=== PATIENT | male | born 1970 | race Caucasian/White ===

== ENCOUNTER 2025-08-15 19:18 | Inpatient (IN) ==
--- NOTE | 2025-08-15 19:45 | Emergency Department Note ---
Impression & Plan Pulmonary edema, Anemia, Hypomagnesemia, Hypokalemia, Compression fx, thoracic spine ED Provider Note NAME: NABIL MACEDO AGE: 55 SEX: M : 1970 ARRIVES VIA: Walk-In INFORMANT: Patient, ED PROVIDER(S): Mark Gore DO CHIEF COMPLAINT: Edema HPI: The patient is a 55-year-old male who presented to the emergency department for an evaluation of lower extremity edema. The patient's had problems with breathing. He is been short of breath as well as experiencing orthopnea. The patient states he was sent for laboratory studies by his primary care physician today. He was sent to the emergency department for an evaluation as he was found to have an elevated creatinine as well as other laboratory abnormalities. The patient was found to have anemia as well as an elevated BNP. The patient was told to come the emergency department for admission. ROS: See above HPI for pertinent positives & negatives. A total of 10 systems reviewed and were otherwise negative. PAST MEDICAL HISTORY: See Below PAST SURGICAL HISTORY: See Below FAMILY HISTORY: See Below SOCIAL HISTORY: See Below HOME MEDICATIONS: See Below ALLERGIES: See Below VITALS: See Below PHYSICAL EXAMINATION: GENERAL: Patient is awake alert in no acute distress patient is resting comfortably and showing no signs of anxiety EYES: The conjunctivae are clear. The pupils are round and reactive. EARS, NOSE, MOUTH AND THROAT: The nose is without any evidence of any deformity. NECK: The neck is nontender and supple. RESPIRATORY: Diminished breath sounds are noted both bases. There was mild tachypnea and conversational dyspnea noted. CARDIOVASCULAR: Regular rhythm was noted to auscultation. There was a gallop noted to auscultation. Tachycardia was noted. GASTROINTESTINAL: The abdomen is soft. Abdomen is nontender. MUSCULOSKELETAL/EXTREMITIES: There is no evidence of gross deformity full range of motion is noted in the hips and shoulders. SKIN: Pedal edema was noted bilaterally. Skin was warm and dry. NEUROLOGIC: Patient is awake alert and oriented x3 MEDICAL DECISION MAKING: The patient is a 55-year-old male who presented to the emergency department for an evaluation of difficulty breathing. The patient's had difficulty breathing and lower extremity swelling over the last several days. He does not normally go to see his family doctor but he did go to see his family doctor recently. The patient was sent to the emergency department for further evaluation. The patient was found to have signs of pulmonary edema with anemia. The patient was also found to have elevated protein. The patient has a constellation of symptoms that could be related to a cardiac cause but also given his other laboratory findings a serum protein electrophoresis was added to his workup in the emergency department. I discussed patient's condition with the on-call [facility] hospitalist. They have agreed to evaluate the patient in the emergency department for further management and disposition. I did review the patient's laboratory and radiographic studies that were done through the [facility] system. He was found to have signs of a severe T5 compression fracture. Triage Nursing notes reviewed. Prior medical records reviewed Vital Signs: reviewed and remarkable for elevated blood pressure. Differential diagnosis: Reactive airway disease, pneumonia, pneumothorax, COPD, CHF, infections, cardiac ischemia, pulmonary embolism, musculoskeletal, gastrointestinal, as well as other pathologies. ER treatment provided: See below Diagnostics interpreted by me: ECG: EKG was obtained in the emergency department. My interpretation is sinus tachycardia at 108 bpm. There was no PVCs noted. Right bundle wrench block pattern was noted. QTc was 538 ms. Cardiac Monitoring: An order was placed for continuous cardiac monitoring. The monitor shows a rate of 104 bpm with sinus tachycardia. Laboratory studies: As stated above and show below. Imaging studies: See below. Radiographic imaging was reviewed by myself Consultation(s): I discussed this case with Dr. Ocho[facility]. Past Med/Surg History Problem List (Updated 08/15/25 @ 21:24 by Mark Gore DO) Compression fx, thoracic spine (Acute) Hypokalemia (Acute) Hypomagnesemia (Acute) Anemia (Acute) Pulmonary edema (Acute) Surgical History History of cholecystectomy Social History Smoking Status: Never smoker Preferred Language: Spanish Feels Safe at Home: Yes Allergies Allergies Allergy/AdvReac Type Severity Reaction Status Date / Time No Known Allergies Allergy Unverified 05/17/10 18:38 Home Meds Home Medications Medication Instructions Recorded Confirmed amoxicillin 875 mg tablet 875 mg PO BID 08/15/25 08/15/25 Results & Data (ED) Vital Signs Vital Signs - 24 hr 08/15/25 19:22 08/15/25 19:55 08/15/25 19:59 Temperature 36.4 C L Temperature Source Oral Pulse Rate 113 H 106 H 104 H Respiratory Rate 18 20 Respiratory Effort / Characteristics Non-Labored Spontaneous Respiratory Depth Normal Respiratory Pattern Regular Blood Pressure 180/91 H Blood Pressure Mean 120 Blood Pressure Position Sitting Pulse Oximetry 94 97 Oxygen Delivery Method Room Air Room Air Sepsis Recent Fever Within 48 Hours No Sepsis New/Unexplained Change in Mental Status N/A Sepsis Action Taken by Nursing No Action Required Home Medications Current Medication List: was personally reviewed by me Laboratory Data Attestation: I reviewed the patient's lab results. 08/15/25 19:50 08/15/25 19:50 Lab Results 08/15/25 Range/Units 19:50 WBC 5.97 (4.8-10.8) K/ul RBC 2.37 L (4.70-6.10) M/uL Hgb 7.4 L (14.0-18.0) g/dL Hct 23.2 L (42.0-52.0) % MCV 97.9 (80.0-100.0) fL MCH 31.2 (25.0-34.0) pg MCHC 31.9 L (32.0-36.0) g/dL RDW Std Deviation 65.8 H (36.4-46.3) fL RDW Coeff of Matthew 18.6 H (11.5-14.5) % Plt Count 181 (130-400) K/uL MPV 9.5 (9.4-12.4) fL Immature Gran % (Auto) 0.3 % Neut % (Auto) 67.5 % Lymph % (Auto) 15.6 % [place] % (Auto) 10.9 % Eos % (Auto) 5.2 % Baso % (Auto) 0.5 % Neut # (Auto) 4.03 (1.40-6.50) K/uL Lymph # (Auto) 0.93 L (1.20-3.40) K/uL [place] # (Auto) 0.65 H (0.11-0.59) K/uL Eos # (Auto) 0.31 (0.00-0.50) K/uL Baso # (Auto) 0.03 (0.00-0.20) K/uL Immature Gran # (Auto) 0.02 (0.01-0.20) K/uL Toxic Vacuolation 1+ Polychromasia 1+ Rouleaux 1+ PT 16.5 H (9.0-12.0) Seconds INR 1.6 H (0.9-1.1) APTT 35 H (21-31) Seconds PTT Ratio 1.3 VBG pH 7.51 H (7.36-7.41) VBG pCO2 32 L (38-50) mmHg VBG pO2 52 mmHg VBG HCO3 26 mmol/L VBG O2 Saturation 81.5 % VBG Base Excess 3.0 mEq/L Sodium 136 (136-145) mmol/L Potassium 3.0 L (3.5-5.1) mmol/L Chloride 99 (98-107) mmol/L Carbon Dioxide 23 (21-32) mmol/L Anion Gap 14 H (3-11) BUN 17 (6-23) mg/dl Creatinine 1.89 H (0.6-1.4) mg/dl Est Cr Clr Drug Dosing 40.3 ml/min eGFR 40.89 BUN/Creatinine Ratio 9.0 L (10-20) Glucose 104 H (70-99(Fasting)) mg/dl Calcium 8.8 (8.6-10.3) mg/dl Magnesium 1.5 L (1.7-2.4) mg/dl Total Bilirubin 1.4 H (0.2-1.0) mg/dl AST 31 (13-39) U/L ALT 26 (7-52) U/L Alkaline Phosphatase 101 (34-104) U/L Troponin I High Sens 37.6 H (0-20) pg/ml B-Natriuretic Peptide 1461 H (0-100) pg/ml Total Protein 10.7 H (6.0-8.3) gm/dl Albumin 2.4 L (3.4-5.0) gm/dl Globulin 8.3 H (2.5-4.0) gm/dl Albumin/Globulin Ratio 0.3 L (0.9-2) Administered Medications Magnesium Sulfate/Dextrose (Magnesium Sulfate / D5w) 1 gm in 100 mls @ 100 mls/hr IV NOW STA Stop: 08/15/25 21:43 Last Admin: 08/15/25 21:04 Dose: 100 mls/hr Documented By: MAGALYS Potassium Chloride (K Dick / Wtr) 10 meq in 100 mls @ 100 mls/hr IV ONE ONE Stop: 08/15/25 21:43 Last Admin: 08/15/25 21:05 Dose: 100 mls/hr Documented By: MAGALYS Discontinued Medications Furosemide (Furosemide 40 Mg Tab) 40 mg PO NOW ONE Stop: 08/15/25 20:45 Last Admin: 08/15/25 21:04 Dose: 40 mg Documented By: MAGALYS Potassium Chloride (Potassium Chloride 10 Meq Tabcr) 10 meq PO NOW STA Stop: 08/15/25 20:45 Last Admin: 08/15/25 20:54 Dose: Not Given Documented By: MAGALYS Imaging Data Attestation: I personally reviewed and interpreted this imaging study as follows: My Impression: 1 view chest x-ray was obtained in the emergency department. My interpretation is cardiomegaly with volume overload, final report below. Radiologist's Impression: Chest X-Ray 08/15/25 19:33 Exam: Chest one view portable. Reason for exam: Shortness of breath. Previous studies: None FINDINGS: Heart is moderately enlarged with central pulmonary vascular congestion and a mild interstitial prominence suggesting mild CHF. Additionally small right pleural effusion is present. IMPRESSION: CHF with cardiomegaly, pulmonary venous hypertension and right pleural effusion. Radiographic follow-up recommended. Electronically signed by Zack Hayes 08-15-2025 8:52 PM Discharge Plan Visit Data Chief Complaint: Referred by Doctor Stated Complaint: REF BY DR ED Provider: Mark Gore Discharge Problem: Pulmonary edema, Anemia, Hypomagnesemia, Hypokalemia, Compression fx, thoracic spine Patient Disposition: Being Evaluated by Hospitalist Condition: Fair Forms Stand Alone Forms: My [facility] Prescriptions Prescriptions: No Action amoxicillin 875 mg tablet 875 mg PO BID Rx Instructions: to start today and take for 10 days Referrals Referrals: PCP,NO [Physician] -
[2025-08-15 20:07] LABS: Base Excess VBG 3.0 mEq/L; HCO3 VBG 26 mmol/L; Oxygen Saturation VBG 81.5 %; PCO2 VBG 32 mmHg (38-50); PO2 VBG 52 mmHg; pH VBG 7.51 (7.36-7.41)
[2025-08-15 20:17] LABS: Hematocrit (blood only) 23.2 % (42.0-52.0); Hemoglobin 7.4 g/dL (14.0-18.0); Immature Granulocytes # (auto) 0.02 K/uL (0.01-0.20); Immature Granulocytes % (auto) 0.3 %; Mean Corpuscular Hemoglobin 31.2 pg (25.0-34.0); Mean Corpuscular Volume 97.9 fL (80.0-100.0); Platelet Count 181 K/uL (130-400); RDW Standard Deviation 65.8 fL (36.4-46.3); Red Blood Count 2.37 M/uL (4.70-6.10); White Blood Count 5.97 K/ul (4.8-10.8)
[2025-08-15 20:31] LABS: Alanine Aminotransferase 26.0 U/L (7-52); Albumin Globulin Ratio 0.3 (0.9-2); Albumin Level 2.4 gm/dl (3.4-5.0); Alkaline Phosphatase 101.0 U/L (34-104); Anion Gap 14.0 (3-11); Bilirubin,Total 1.4 mg/dl (0.2-1.0); Blood Urea Nitrogen 17.0 mg/dl (6-23); Calcium 8.8 mg/dl (8.6-10.3); Carbon Dioxide 23.0 mmol/L (21-32); Chloride 99.0 mmol/L (98-107); Creatinine Clr Calc Pharmacy 40.3 ml/min; Globulin 8.3 gm/dl (2.5-4.0); Glucose 104.0 mg/dl (70-99(Fasting)); Magnesium 1.5 mg/dl (1.7-2.4); Potassium 3.0 mmol/L (3.5-5.1); Sodium 136.0 mmol/L (136-145); Total Protein 10.7 gm/dl (6.0-8.3)
[2025-08-15 20:41] LABS: INR 1.6 (0.9-1.1); Partial Thromboplastin Time 35 Seconds (21-31); Prothrombin Time 16.5 Seconds (9.0-12.0)
[2025-08-15 20:45] LABS: Polychromasia 1+; Rouleaux 1+; Toxic Vacuolation 1+
--- NOTE | 2025-08-15 20:52 | XRay Report ---
Exam: Chest one view portable. Reason for exam: Shortness of breath. Previous studies: None FINDINGS: Heart is moderately enlarged with central pulmonary vascular congestion and a mild interstitial prominence suggesting mild CHF. Additionally small right pleural effusion is present. IMPRESSION: CHF with cardiomegaly, pulmonary venous hypertension and right pleural effusion. Radiographic follow-up recommended. Electronically signed by Zack Hayes 08-15-2025 8:52 PM
[2025-08-15] MEDS: POTASSIUM CHLORIDE 10 MEQ TABCR PO STA (20:54)
[2025-08-15] MEDS: MAGNESIUM SULFATE / D5W 1 GM/100 ML BAG IV STA (21:04)
[2025-08-15] MEDS: FUROSEMIDE 40 MG TAB PO ONE (21:04)
[2025-08-15] MEDS: POTASSIUM CHLORIDE / WTR 10 MEQ/100 ML PLCT IV ONE (21:05)
[2025-08-15] MEDS: POTASSIUM CHLORIDE CRTAB 20 MEQ TABCR PO STA (21:30)
[2025-08-15] MEDS: METOPROLOL TARTRATE 25 MG TAB PO STA (21:31)
--- NOTE | 2025-08-15 21:39 | History & Physical Report ---
Date of Service August 15, 2025 Assessment & Plan (1) Anemia: (2) Pulmonary edema: (3) Pleural effusion, right: (4) Hypomagnesemia: (5) Hypokalemia: (6) Elevated blood pressure reading: (7) Compression fx, thoracic spine: (8) Abnormal kidney function: Plan: HPI, ROS, PE, PMH, SH, FH completed by Maria E Olivares PA-C Blood consent was obtained from the patient as delegated by Dr. Hubbard. Risks and benefits were explained. All questions were answered, and the patient was offered the opportunity to discuss with attending physician and declined. Assessment and plan per Dr Hubbard. See addendum. History of Present Illness Chief Complaint: abnormal labs Primary Care Provider: Spring Soco Patient is 55-year-old male with PMH chewing tobacco use presented to ER for abnormal labs. Patient reports he has not seen a provider for over 20 years. Reports thoracic back pain that started after he was lifting heavy tote in May. Patient reports went to a chiropractor and had adjustments without relief. States saw another chiropractor which helped decrease pain. Reports approximately 1 week ago started with productive cough. Denies rhinorrhea, sore throat. Denies fever or chills. Reports thoracic back pain worse since cough. He has been taking ibuprofen intermittently over past couple of months for back pain. 6 days ago noticed bilateral lower leg edema. He reports noticing SOB with exertion for past 1-2 months. noticed seems winded with conversation at times. Sleeps in recliner for past several months secondary to back discomfort. Denies noted orthopnea. Reports 20 pound weight loss over the past 3 months with poor appetite and decreased oral intake. Fatigue over the past month. Family has stated his color seems off. Denies diaphoresis, N/V/D/C, VELA, dizziness, syncope, vision changes, neck pain, CP, palpitations, hemoptysis, sore throat, choking, abdominal pain, paresthesias, extremity weakness, extremity erythema, rashes, urinary symptoms, night sweats, melena, hematochezia. Denies falls or other trauma. Patient presented to PCP today as new patient and labs were ordered. He was found to have anemia and abnormal renal functions and referred to ER for further evaluation. Reports father was smoker and "smoking and pneumonia". Per outpatient chart review 08/15/25: Cr: 2.1, H/H: 7.3/24.5, PSA:3.3 (range <3.1), A1c: 6.0, TSH: 1.7, proBNP: 11,595 (range <300), Lipid panel: Total cholesterol: 61, LDL: 30, HDL: 21, triglycerides: 49 08/15/25 CXR: Impression: Small right pleural effusion. 08/15/25 Thoracic spine x-ray: Impression: Moderate to severe T5 compression fracture, age indeterminate. Mild multilevel thoracic degenerative change. Allergies Allergy/AdvReac Type Severity Reaction Status Date / Time No Known Allergies Allergy Unverified 05/17/10 18:38 Home Medications Medication Instructions Recorded Confirmed Type amoxicillin 875 mg tablet 875 mg PO BID 08/15/25 08/15/25 History Past Med/Surg History Problem List (Updated 08/15/25 @ 22:47 by Maria E Olivares PA-C) Elevated blood pressure reading Abnormal kidney function Pleural effusion, right Compression fx, thoracic spine (Acute) Hypokalemia (Acute) Hypomagnesemia (Acute) Anemia (Acute) Pulmonary edema (Acute) Surgical History History of cholecystectomy Family History Father No problems noted. Social History (Updated 08/15/25 @ 22:38 by Maria E Olivares PA-C) Smoking Status: Never smoker Tobacco Type: Smokeless Tobacco (Dip or Chew) Do You Dip or Chew Tobacco: Yes; Hx Alcohol Use: No Hx Substance Use: No Preferred Language: Citizen Of [place] Tobacco Educator Required: No Beliefs That Will Affect Care: None Current Living Situation: Spouse and Family Feels Safe at Home: Yes Review of Systems Review of Systems: All systems reviewed & are unremarkable except as noted in HPI & below Physical Exam Physical Exam: General: no distress, overweight male Head: normocephalic, atraumatic Eyes: conjunctiva non-injected, anicteric ENT: normal inspection external ears, nose, mucous membranes moist Neck: supple, trachea midline Lungs: +dyspneic with conversation, R: 24, +diminished breath sounds RLL ; +cough with visibly productive yellow sputum CV: regular rhythm, tachycardia, rate 104, possible S3, + pretibial edema Abd: protuberant, normal BS, soft, non-tender Ext: no cyanosis, no calf tenderness Neuro: A&O x 3, no focal deficits noted, normal affect Skin: warm, dry, left lower leg with scattered excoriations and scabs Results & Data Results & Data Vital Signs (Past 12 Hours) Vital Signs Temp Pulse Resp BP Pulse Ox O2 Del Method 08/15/25 19:59 104 H 20 97 Room Air 08/15/25 19:55 106 H 08/15/25 19:22 36.4 C L 113 H 18 180/91 H 94 Room Air Laboratory Results Short CBC 08/15/25 Range/Units 19:50 WBC 5.97 (4.8-10.8) K/ul Hgb 7.4 L (14.0-18.0) g/dL Hct 23.2 L (42.0-52.0) % Plt Count 181 (130-400) K/uL BMP 08/15/25 19:50 Sodium 136 Potassium 3.0 L Chloride 99 Carbon Dioxide 23 BUN 17 Creatinine 1.89 H Glucose 104 H Calcium 8.8 Liver Function 08/15/25 Range/Units 19:50 Total Bilirubin 1.4 H (0.2-1.0) mg/dl AST 31 (13-39) U/L ALT 26 (7-52) U/L Alkaline Phosphatase 101 (34-104) U/L Albumin 2.4 L (3.4-5.0) gm/dl Diagnostic Findings Chest X-Ray 08/15/25 19:33 Exam: Chest one view portable. Reason for exam: Shortness of breath. Previous studies: None FINDINGS: Heart is moderately enlarged with central pulmonary vascular congestion and a mild interstitial prominence suggesting mild CHF. Additionally small right pleural effusion is present. IMPRESSION: CHF with cardiomegaly, pulmonary venous hypertension and right pleural effusion. Radiographic follow-up recommended. Electronically signed by Zack Hayes 08-15-2025 8:52 PM Supervising Physician Co-Signing Physician Notes IM ATTENDING : Patient seen and examined. History obtained from patient and records. Concur with salient points upon review of preceding documentation by Ms. Maria E Olivares PA-C. In addition, SBP 170s at the clinic and 180s upon arrival at the ER. I take responsibility for plan of care below. FINAL ASSESSMENT AND PLAN as follows : Shortness of breath Multifactorial: Acute CHF possibly from uncontrolled blood pressure Complicated bronchitis, no sepsis for now LE swelling secondary to CHF rule out DVT Worsening back pain, age-indeterminate T5 compression fracture on outpatient imaging ARF, unknown duration, NSAID use for back pain contributory New onset anemia, outpatient iron and folic acid levels noted to be low, FOBT done at bedside negative. Hypokalemia, hypomagnesemia Prediabetes, outpatient hemoglobin A1c of 6 ongoing tobacco abuse Admit to PCU Diuretic Rx Initiate beta-bernice for BP control Strict I/Os, daily weights, CHF education Patient counseled regarding adverse effects of NSAIDs on blood pressure and kidney function. TTE, Cardiology consult re: CHF Doxycycline for complicated bronchitis LE venous Dopplers rule out DVT CT thoracic and lumbar spine for back pain in the setting of anemia and kidney dysfunction Iron and folic acid replacement Transfuse PRBC to maintain hemoglobin of at least 7 Replace electrolytes DVT prophylaxis. Heparin subcu if no bleeding concerns on CT imaging Full code I spent a total of 30 minutes coordinating, documenting, and providing care for this patientexcludingtime spent by another provider/QHP. Text document was generated using [employer] voice recognition software. It may contain grammatical or spelling errors. Kindly contact undersigned for clarification of any documentation item in question.
[2025-08-15] MEDS: MAGNESIUM SULFATE / D5W 1 GM/100 ML BAG IV ONE (22:03)
[2025-08-15 22:23] LABS: Chlamydia pneumoniae PCR Not Detected (NotDetected); Coronavirus 229E PCR Not Detected (NotDetected); Coronavirus CoV-2 (COVID19)PCR Not Detected (NotDetected); Coronavirus HKU1 PCR Not Detected (NotDetected); Coronavirus NL63 PCR Not Detected (NotDetected); Coronavirus OC43PCR Not Detected (NotDetected); Human Metapneumovirus PCR Not Detected (NotDetected); Parainfluenza Virus 1 PCR Not Detected (NotDetected); Parainfluenza Virus 2 PCR Not Detected (NotDetected); Parainfluenza Virus 3 PCR Not Detected (NotDetected); Parainfluenza Virus 4 PCR Not Detected (NotDetected); Respiratory Syncytial VirusPCR Not Detected (NotDetected); Rhinovirus/Enterovirus PCR Not Detected (NotDetected)
[2025-08-15 22:56] LABS: Appearance Urine Clear (Clear); Bacteria Urine Automated None Seen (None Seen); Epithelial Cell Urine Auto 0-2 /hpf (0-2); Glucose Urine UA Negative (Negative); RBC Urine Automated 0-2 /hpf (0-2)
[2025-08-15 23:21] LABS: Hematocrit (blood only) 21.4 % (42.0-52.0); Hemoglobin 6.9 g/dL (14.0-18.0)
[2025-08-15] MEDS ORDERED: SODIUM CHLORIDE 0.9% 100 ML IV PRN (23:25)
[2025-08-15] MEDS ORDERED: PROMETHAZINE 6.25 MG/50.25 ML BAG IV PRN (23:26)
[2025-08-15] MEDS ORDERED: HYDROmorphone INJ 0.5 MG/0.5 ML SYR IV PRN (23:26)
[2025-08-15] MEDS ORDERED: ACETAMINOPHEN 325 MG TAB PO PRN (23:26)
[2025-08-16] MEDS: POTASSIUM CHLORIDE CRTAB 20 MEQ TABCR PO ONE (00:15)
[2025-08-16] MEDS: NICOTINE 14 MG/24 HR PATCH TD STA (00:17)
[2025-08-16] MEDS: FUROSEMIDE INJ 20 MG/2 ML VIAL IV ONE (03:27)
[2025-08-16] MEDS: DOXYCYCLINE HYCLATE 100 MG in DEXTROSE 5% MINI-B 100 ML IV STA (03:30)
--- NOTE | 2025-08-16 04:02 | Ultrasound Report ---
EXAM: US venous doppler LE BI CLINICAL HISTORY: swelling TECHNIQUE: Bilateral lower extremity venous Doppler was performed. One or more of the following were performed- spectral analysis, resistive index, waveform analysis, and pulsed Doppler. COMPARISON: None. FINDINGS: Bilateral lower limb venous system was examined. The veins scanned included the following: Common femoral, superficial femoral, popliteal and posterior tibial veins. On the B mode examination, the veins are compressible. No evidence of an intraluminal thrombus. On the color and spectral Doppler mode, there is phasic and spontaneous flow in the vessels. Additional Findings: No evidence of superficial vein thrombosis at the visualized veins. Bilateral groin lymph nodes with preserved fatty hilum, likely reactive. Mild bilateral calf subcutaneous edema. IMPRESSION: 1. No evidence of deep vein thrombosis at the visualized bilateral lower extremity veins at this time of exam. 2. Bilateral groin lymph nodes with preserved fatty hilum, likely reactive. 3. Mild bilateral calf subcutaneous edema. RECOMMENDATIONS: Clinical correlation with symptoms and further evaluation as indicated. DISCLAIMER:DVT could be missed early in the disease when clot burden is minimal. For patients with moderate and high pretest probability of DVT and negative ultrasound, the [place] [employer] clinical guidelines recommend testing with a d-dimer assay or repeat ultrasound in 5-7 days. If symptoms worsen, the Society of radiologists in ultrasound recommends repeating ultrasound even earlier. Electronically signed by Trae Martinez 08-16-2025 04:02 AM
--- NOTE | 2025-08-16 06:17 | CT Scan Report ---
EXAM: CT abd pelvis wo con CLINICAL HISTORY: back pain TECHNIQUE: Contiguous axial images were obtained from the level of the diaphragm to the pubic symphysis without intravenous or oral contrast. Coronal and sagittal reconstructions were likewise performed and indicated to increase the sensitivity for detecting clinically relevant pathology. CT scan was performed according to ALARA (as low as reasonably achievable). COMPARISON: None. FINDINGS: Mild right pleural effusion with basal subsegmental collapse of right lower lobes are seen. Mild ascitic fluid is noted involving perihepatic space, right paracolic gutter and lower abdomen and pelvis region. Evaluation of the abdominal and pelvic visceral organs is limited without intravenous contrast. The unenhanced liver, spleen, pancreas, and adrenal glands are grossly unremarkable. Status post-cholecystectomy. The kidneys are normal in size and attenuation without obvious calcification. There is no hydronephrosis Mild bilateral perinephric fat stranding. The ureters are normal in caliber. No evidence of focal or diffuse bowel wall thickening or evidence of bowel obstruction is seen. The aorta is normal in caliber. The urinary bladder is normal in contour. Enlarged prostate. Pelvic viscera are grossly unremarkable. Fat containing bilateral inguinal hernia.-more on right side. Mild focal mesenteric haziness is noted involving supra and periumbilical region (at the mesenteric root) superimposed subcentimeter size lymph nodes-suggestive of mesenteric panniculitis. Multiple variable sized osteolytic lesions are noted involving axial and appendicular skeleton- possibility of neoplastic etiology. Diffuse subcutaneous edema/anasarca noted. Multiple subcentimeter sized to mildly prominent aortocaval, para-aortic and paracaval lymph nodes are seen. IMPRESSION: 1. Mild right pleural effusion with basal subsegmental collapse of right lower lobes are seen. 2. Mild ascitic fluid is noted involving perihepatic space, right paracolic gutter and lower abdomen and pelvis region. 3. Mild bilateral perinephric fat stranding 4. Enlarged prostate. 5. Fat containing bilateral inguinal hernia.-more on right side. 6. Mesenteric panniculitis. 7. Multiple subcentimeter sized to mildly prominent aortocaval, para-aortic and paracaval lymph nodes are seen. 8. Multiple variable sized osteolytic lesions are noted involving axial and appendicular skeleton - possibility of neoplastic etiology. 9. Diffuse subcutaneous edema/anasarca noted. Electronically signed by Cricket Brooke 08-16-2025 06:17 AM
--- NOTE | 2025-08-16 06:21 | CT Scan Report ---
EXAM: CT thoracic spine wo con CLINICAL HISTORY: back pain TECHNIQUE: Multiple contiguous axial images were obtained through the thoracic spine without IV contrast. Sagittal and coronal reformatted images were obtained from the axial data. CT scan was performed according to ALARA (as low as reasonably achievable). COMPARISON: None. FINDINGS: The alignment of the thoracic spine is maintained. Degenerative changes involving thoracic spine in the form of multilevel marginal osteophytes, disc space reduction and facetal arthrosis. Evidence of variable sized osteolytic lesions are noted involving visualized thoracic vertebrae including its posterior elements and multiple ribs.- largest involving T7 and T9 vertebra. Compression collapse of T5 vertebra with about 80%-90% reduction of vertebral body height with retropulsion of posterior cortex causing mild spinal canal narrowing (Anteroposterior dimension measuring 11mm). - pathological compression likely. Compression collapse of T7 vertebra with about 15%-20% reduction of vertebral body height. Thoracic vertebral bodies are maintained in height and alignment. No vertebral destructive changes are seen. C7-T1: No disc bulge. No canal stenosis. No neuroforaminal narrowing. T1-T2: No disc bulge. No canal stenosis. No neuroforaminal narrowing. T2-T3: No disc bulge. No canal stenosis. No neuroforaminal narrowing. T3-T4: No disc bulge. No canal stenosis. No neuroforaminal narrowing. T4-T5: No disc bulge. No canal stenosis. No neuroforaminal narrowing. T5-T6: No disc bulge. No canal stenosis. No neuroforaminal narrowing. T6-T7: No disc bulge. No canal stenosis. No neuroforaminal narrowing. T7-T8: No disc bulge. No canal stenosis. No neuroforaminal narrowing. T8-T9: No disc bulge. No canal stenosis. No neuroforaminal narrowing. T9-T10: No disc bulge. No canal stenosis. No neuroforaminal narrowing. T10-T11: No disc bulge. No canal stenosis. No neuroforaminal narrowing. T11-T12: No disc bulge. No canal stenosis. No neuroforaminal narrowing. Paravertebral soft tissues are unremarkable. Visualized lung parenchyma appears unremarkable. Mild right pleural effusion with basal subsegmental collapse of right lower lobes are seen. IMPRESSION: Evidence of variable sized osteolytic lesions are noted involving visualized thoracic vertebrae including its posterior elements and multiple ribs.- largest involving T7 and T9 vertebra.- possibility of neoplastic etiology likely. Compression collapse of T5 vertebra with about 80%-90% reduction of vertebral body height with retropulsion of posterior cortex causing mild spinal canal narrowing - pathological compression likely. Compression collapse of T7 vertebra with about 15%-20% reduction of vertebral body height. Mild right pleural effusion with basal subsegmental collapse of right lower lobes are seen. Electronically signed by Cricket Brooke 08-16-2025 06:20 AM
[2025-08-16 06:42] LABS: Hematocrit (blood only) 22.6 % (42.0-52.0); Hemoglobin 7.5 g/dL (14.0-18.0); Immature Granulocytes # (auto) 0.03 K/uL (0.01-0.20); Immature Granulocytes % (auto) 0.4 %; Mean Corpuscular Hemoglobin 31.8 pg (25.0-34.0); Mean Corpuscular Volume 95.8 fL (80.0-100.0); Platelet Count 199 K/uL (130-400); RDW Standard Deviation 64.0 fL (36.4-46.3); Red Blood Count 2.36 M/uL (4.70-6.10); White Blood Count 6.84 K/ul (4.8-10.8)
[2025-08-16 07:14] LABS: Polychromasia 1+; Rouleaux 2+
[2025-08-16 07:24] LABS: Anion Gap 15.0 (3-11); Blood Urea Nitrogen 18.0 mg/dl (6-23); Calcium 9.0 mg/dl (8.6-10.3); Carbon Dioxide 23.0 mmol/L (21-32); Chloride 99.0 mmol/L (98-107); Creatine Kinase 41.0 U/L (30-223); Creatinine Clr Calc Pharmacy 50.4 ml/min; Glucose 103.0 mg/dl (70-99(Fasting)); Magnesium 2.0 mg/dl (1.7-2.4); Potassium 3.4 mmol/L (3.5-5.1); Sodium 137.0 mmol/L (136-145)
[2025-08-16] MEDS: METOPROLOL TARTRATE 25 MG TAB PO SCH ×2 (07:30→08:16)
[2025-08-16] MEDS: FUROSEMIDE 40 MG/4 ML VIAL IV SCH (08:17)
[2025-08-16] MEDS: POTASSIUM CHLORIDE CRTAB 20 MEQ TABCR PO SCH (08:19)
[2025-08-16] MEDS: FOLIC ACID 1 MG TAB PO SCH (08:20)
[2025-08-16] MEDS: FERROUS SULFATE 325 MG TAB PO SCH (08:20)
[2025-08-16] MEDS: NICOTINE 14 MG/24 HR PATCH TD SCH (08:21)
[2025-08-16] MEDS: REMOVE NICODERM PATCH SCH (08:56)
[2025-08-16 09:54] LABS: Immunoglobulin G 472.8 mg/dl (635-1741); Immunoglobulin M < 20.0 mg/dl (45-281)
[2025-08-16 09:55] LABS: Immunoglobulin A 6649.2 mg/dl (70-400)
--- NOTE | 2025-08-16 11:13 | XCELERA ---
[id number]
--- NOTE | 2025-08-16 11:13 | Cardiology Consultation ---
<Statement entered by Lyn Riggs, - 08/16/25 14:58> I have reviewed the advanced practitioner's documentation and agree with the plan of care. I accept the responsibility for the associated risk. pt seen in cardiology consultation due to volume overload (acute newly found uncertain chronicity heart failure with preserved EF-NYHA CLass II-III probably due to high out put cardiac in setting of anemia) in the setting of newly found anemia and ST and hypertension pt has not seen a physician in sometime but then finally did and due to out pt lab work was referred to hospital. He reports a few months ago hurting his back after lifting something and has been taking 3-4 ibuprofen daily since then he was found to have fracture lumbar spine on admission work up in addition to anemia bp is still elevated recommend coreg will accept some of the ST for now echo today reveals mildly reduced EF at about 50% with biatrial enlargement agree with work up for potential MM as this is a concerning diagnosis would continue IV lasix for today and i suspect by tomorrow we can transition to torsemide 40mg daily I discussed the case and my recommendations with the hospitalist over the phone and he agreed with my plan I spent a total of 45 minutes coordinating, documenting, and providing care for this patient excluding time spent in the performance of separately billed services or time spent by another provider/QHP. Date of Consultation August 16, 2025 Assessment & Plan (1) Elevated blood pressure reading: (2) Abnormal kidney function: (3) Anemia: (4) Volume overload: (5) Sinus tachycardia: Plan - ECG reviewed indicates sinus tachycardia with right bundle branch block - Does have a dilated IVC on echocardiogram with an EF of 45-50% - Continue IV diuresis for today, can likely stop tommorow - Monitor and replace electrolytes as necessary - He is anemic could have a semblance of high or output volume overload from the tachycardia? - Nephrology consult pending for abnormal renal function - Heart rate has improved - Blood pressure remains significantly elevated. Will transition from metoprolol to Coreg - He was taking ibuprofen for the last 2 months for his back pain which may be contributing factor - Radiology imaging on concerning for possible transfer status tomorrow SPEP and UPEP workup has been initiated for neoplastic workup Case discussed with Dr. Riggs. Please see attestation for additional recommen dations. PASCALE Abrams Department of Cardiology, [facility] This chart was completed in part utilizing Speech Voice Recognition Software. Grammatical errors, random word insertions, pronoun errors, and incomplete sentences are an occasional consequence of this system due to software limitations, ambient noise, and hardware issues. Any formal questions or concerns about the content, text, or information contained within the body of this dictation should be directly addressed to the provider for clarification. History of Present Illness Reason for Consultation: CHF Requesting Physician: Hospitalist Attending Physician: Lexx Isidro DO History of Present Illness 55-year-old male seen in consultation today in regard to concern of CHF. Presented to the hospital after establishing care with a primary care provider yesterday and being found to have had multiple abnormalities on lab work. He does have an ongoing issue with lower extremity edema and shortness of breath with orthopnea which have been ongoing for a while prior to presentation. Also noted that he had been having back pain which he had been seeing a chiropractor but has not had relief from this. Approximately 1 week prior to presentation he did develop a productive cough with postnasal drip. Denies chest pain. Did note that his upper back pain significantly worsened when he had developed the coughing about 1 week ago. Believes that he has had about 20 pound weight loss over the last 3 months with poor appetite and feeling more fatigued. Allergies Allergy/AdvReac Type Severity Reaction Status Date / Time No Known Allergies Allergy Unverified 05/17/10 18:38 Home Medications Medication Instructions Recorded Confirmed Type amoxicillin 875 mg tablet 875 mg PO BID 08/15/25 08/15/25 History Patient History Surgical History History of cholecystectomy Family History Father No problems noted. Social History (Updated 08/15/25 @ 22:38 by Maria E Olivares PA-C) Smoking Status: Never smoker Tobacco Type: Smokeless Tobacco (Dip or Chew) Do You Dip or Chew Tobacco: Yes; Hx Alcohol Use: No Hx Substance Use: No Preferred Language: Com[place]an Scaler Packer Required: No Beliefs That Will Affect Care: None Current Living Situation: Spouse and Family Feels Safe at Home: Yes Review of Systems Constitutional: + fatigue and + weight loss; no fever an d no chills Respiratory: + cough and + dyspnea on exertion Cardiovascular: + edema; no chest pain, no palpitations and no syncope Gastrointestinal: no abdominal pain Musculoskeletal: + back pain Physical Exam Constitutional: WD/WN, vitals as above + ill appearing and + overweight; no acute distress Neck: trachea midline, no thyromegaly Respiratory: normal respiratory effort, lungs clear to auscultation Cardiovascular: Rate/Rhythm: regular rhythm and + tachycardic Heart Sounds: no murmur Vessels: no JVD Extremities: + edema Gastrointestinal (Abdomen): normal bowel sounds, soft, nontender, no hepatosplenomegaly Psychiatric: A+Ox3, euthymic affect Results & Data Vital Signs (Past 12 Hours) Vital Signs Temp Pulse Pulse Resp BP BP BP 08/16/25 09:19 94 H 165/113 H 151/103 H 08/16/25 08:00 08/16/25 07:27 167/119 H 08/16/25 07:14 36.8 C 108 H 14 180/119 H 08/16/25 03:26 36.8 C 94 H 24 156/100 H 08/16/25 02:35 94 H 20 148/106 H 08/16/25 01:35 93 H 16 156/104 H 08/16/25 01:05 36.8 C 93 H 18 142/97 H 08/16/25 00:50 36.9 C 91 H 22 152/104 H 08/16/25 00:30 36.4 C L 93 H 16 149/102 H 08/15/25 23:50 36.4 C L 103 H 18 150/104 H 08/15/25 23:00 97 H 20 152/99 H Pulse Ox O2 Del Method 08/16/25 09:19 08/16/25 08:00 Room Air 08/16/25 07:27 08/16/25 07:14 95 Room Air 08/16/25 03:26 95 08/16/25 02:35 94 08/16/25 01:35 96 08/16/25 01:05 95 08/16/25 00:50 94 08/16/25 00:30 94 08/15/25 23:50 94 Room Air 08/15/25 23:00 94 Room Air PG Care Time/CCT Total # of Minutes Spent Total Time Spent with Patient: Total time spent is greater than 50% in coordination of care (as documented) at patient's floor/unit and/or counseling patient: Coding Level of Care Code 95458 IN/OBS CONSULT LVL 5,80M Diagnoses Elevated blood pressure reading R03.0 Abnormal kidney function N28.9 Anemia D64.9 Volume overload E87.70 Sinus tachycardia R00.0
[2025-08-16] MEDS: IPRATROPIUM BROMIDE NEB SOLN 0.02% 0.5MG/2.5ML VIAL INH STA (11:40)
[2025-08-16] MEDS: LEVALBUTEROL 1.25 MG/3 ML NEB NEB STA (11:40)
--- NOTE | 2025-08-16 12:28 | Electrocardiogram Report ---
Test Reason : Blood Pressure : */* mmHG Vent. Rate : 108 BPM Atrial Rate : 108 BPM P-R Int : 130 ms QRS Dur : 152 ms QT Int : 402 ms P-R-T Axes : 41 -19 1 degrees QTcB Int : 538 ms Sinus tachycardia Possible Left atrial enlargement Right bundle branch block Abnormal ECG No previous ECGs available Confirmed by Mark Woo ([id number]) on 08/16/2025 12:28:07 PM Referred By: REFERRED SELF Confirmed By: Mark Woo
--- NOTE | 2025-08-16 13:46 | Hospitalist Progress Note ---
Date of Service August 16, 2025 Assessment & Plan (1) Multiple myeloma: Plan: Suspected (2) Acute renal failure: (3) Acute anemia: (4) Hypertension, uncontrolled: (5) Hypertensive heart failure: (6) Osteolytic lesion: (7) Compression fx, thoracic spine: Plan: T5, T7, T9 (8) Pathological fracture of vertebra: (9) Hypokalemia: (10) Hypomagnesemia: Plan Patient 55-year-old gentleman who does not frequently see a physician sent to the emergency department after outpatient labs show significant anemia and renal dysfunction. Patient subsequently found to be significantly hypertensive, significant edema. Patient was transfused 1 unit packed red blood cells last evening, hemoglobin has improved appropriately Appropriate response to IV diuretics Imaging of his thoracic spine reveals compression fractures T5, T7, T9 in the setting of lytic lesions highly concerning for neoplastic process. With new anemia, and new renal failure, elevated serum protein, lytic lesions on imaging presentation highly suspicious for multiple myeloma. Immunoglobulins, free chain, SPEP testing pending Communication with oncology, anticipate evaluating patient tomorrow Consult nephrology for renal failure and ongoing management Communication with cardiology, suspect edema due to hypertension, anticipate will need another 24 hours of diuretics and blood pressure control, Coreg started Scheduled Tylenol for his compression fractures with as needed oxycodone. Explained to patient that he would have to ask for the oxycodone Skeletal survey, CT of head, cervical spine and lumbar spine to go with the CT of the abdomen pelvis and thoracic spine to evaluate for additional lytic lesions. May need 24-hour urine, will defer to nephrology Extensive conversation with patient and son at bedside. Explained findings and data that has been obtained to date. Expressed to them my concern that his symptoms and diagnostic studies are highly suspicious for multiple myeloma. Explained that he may need some additional testing including bone marrow biopsy before any type of treatment plan could be developed for him. Continue to monitor hemoglobin, transfuse as needed Monitor electrolytes and renal function Admission and Anticipated Discharge Date Admission Date: August 15, 2025 Subjective Patient states that he is already feeling a little bit better. Breathing easier. He rates his back pain as a 2, however, suspect he has somewhat of a high pain tolerance. Physical Exam Physical Exam: Constitutional: Alert, nontoxic HEENT: Mucous membranes moist. Lungs: Decreased breath sounds, no wheezes CV: S1-S2, regular, tachycardic Abdomen: Soft, nontender, nondistended Extremities: 1-2+ pitting edema lower extremities Neuro: No focal deficits Psych: Cooperative, normal mood Results & Data Results & Data Vital Signs (Past 12 Hours) Vital Signs Temp Pulse Pulse Resp BP BP BP 08/16/25 11:23 36.4 C L 99 H 20 158/105 H 08/16/25 09:19 94 H 165/113 H 151/103 H 08/16/25 08:00 08/16/25 07:27 167/119 H 08/16/25 07:14 36.8 C 108 H 14 180/119 H 08/16/25 03:27 36.8 C 94 H 14 156/100 H 08/16/25 03:26 36.8 C 94 H 24 156/100 H 08/16/25 02:35 94 H 20 148/106 H 08/16/25 01:35 93 H 16 156/104 H Pulse Ox O2 Del Method 08/16/25 11:23 92 Room Air 08/16/25 09:19 08/16/25 08:00 Room Air 08/16/25 07:27 08/16/25 07:14 95 Room Air 08/16/25 03:27 95 08/16/25 03:26 95 08/16/25 02:35 94 08/16/25 01:35 96 Diagnostic Findings Reviewed imaging, laboratory and diagnostic studies. Pertinent findings as below. WBC 6.8 Hemoglobin 7.5 posttransfusion Platelets of 199 Potassium 3.4 Creatinine 1.97 Total protein 10.7 Albumin 2.4 Urine protein 2+ Urine hyaline casts present IgG 472.8, low IgA 6649.2, high IgM less than 20 Free light chains pending SPEP pending Echocardiogram showed ejection fraction 50% with some mild reduced systolic function, dilated atria, no significant valvular pathology. Ultrasound lower extremity negative for DVT, reactive nodes in groin bilaterally CT thoracic spine shows compression fracture T5, T7, T9. Multiple lytic lesions
--- NOTE | 2025-08-16 14:33 | CT Scan Report ---
EXAM: CT Lumbar Spine Without Intravenous Contrast INDICATION: Lytic lesions noted on thoracic CT TECHNIQUE: Axial computed tomography images of the lumbar spine without intravenous contrast. Sagittal and coronal reformatted images were created and reviewed. This CT exam was performed using one or more of the following dose reduction techniques: automated exposure control, adjustment of the mA and/or kV according to patient size, and/or use of iterative reconstruction technique. COMPARISON: CT thoracic spine same day FINDINGS: Limitations: None. Vertebrae: The bones are diffusely demineralized. More prominent lytic foci noted scattered throughout the vertebral bodies of varying sizes. There is a lytic lesion in the right L3 lamina and in the right L4 superior facet. There are lytic lesions in both iliac bones and in the L5 spinous process. No visible fracture. No periosteal reaction. Sacrum/coccyx: No acute abnormality noted. No acute change noted. Discs/spinal canal/neural foramina: Multilevel mild disc bulging. No stenosis. Soft tissues: No acute abnormality noted. Lungs and pleural spaces: Small layering right pleural effusion noted. IMPRESSION: Diffuse lytic changes in the lumbar spine and visualized iliac bones most concerning for metastatic disease. No fracture noted. ACT 112: N/A Electronically signed by Haven Martin 08-16-2025 2:32 PM
--- NOTE | 2025-08-16 14:34 | CT Scan Report ---
EXAM: CT Head and Cervical Spine Without Intravenous Contrast INDICATION: Lytic lesions noted on thoracic and lumbar CT. TECHNIQUE: Axial computed tomography images of the head/brain and cervical spine without intravenous contrast. Sagittal and coronal reformatted images were created and reviewed. This CT exam was performed using one or more of the following dose reduction techniques: automated exposure control, adjustment of the mA and/or kV according to patient size, and/or use of iterative reconstruction technique. COMPARISON: No relevant prior studies available. FINDINGS: Limitations: None. Brain and extra-axial spaces: Multiple scans obtained due to motion. No gross territorial infarct, hemorrhage or extra-axial collection. No visible mass. No significant white matter disease. Skull: No calvarial fracture noted. Multiple lytic lesions identified throughout the calvarium. No periosteal reaction. Sinuses: There is moderate chronic mucosal thickening right maxillary sinus. There is mild mucosal thickening right ethmoid air cells. Mastoid air cells: No mastoid effusion. Orbits: No acute abnormality noted. Vertebrae: Cervical vertebra are diffusely demineralized. Diffuse scattered predominantly spherical lytic lesions noted throughout the vertebral bodies, the left C1 lateral mass and scattered in the facets. There is a prominent lytic lesion of the right. Discs/spinal canal/neural foramina: No significant disc space abnormality or stenosis. Soft tissues: No acute abnormality noted. Vasculature: No acute abnormality noted. Lung apices: No acute abnormality noted. Pleural space: There is a small right pleural effusion. IMPRESSION: 1. Multiple lytic lesions noted throughout the cervical spine and calvarium most concerning for metastatic disease. No fracture. 2. Motion limits assessment of the brain. No acute abnormality identified. 3. Small right pleural effusion. ACT 112: N/A Electronically signed by Haven Martin 08-16-2025 2:32 PM
--- NOTE | 2025-08-16 14:34 | Nephrology Consultation ---
Date of Consultation August 16, 2025 Assessment & Plan (1) Acute renal failure: Patient has not seen a physician for many years, difficult to comment if this is chronic or acute. he has got 1-2+ proteinuria with osteolytic lesions and anemia- myeloma is a possibility,he has been on regular NSAIDS Since May , again GN is a possibility myeloma screen has been sent by the primary team. will get a albumin creatinine ratio/protein creatinine ratio/ Renal immunology screen and a renal ultrasound - Agree with Hematology consult- he will need bone marrow biopsy/ renal biopsy - send PTH/vitamin-D/ iron studies( should have been done before transfusion) (2) Osteolytic lesion: (3) Hypertension, uncontrolled: - likely essential hypertension - he has never been on antihypertensive before - continue with furosemide 40 mg IV twice daily with carvedilol 6.25 twice daily add amlodipine 5 mg daily, no Lencho ARB at the moment. History of Present Illness Reason for Consultation: acute kidney injury Attending Physician: Lexx Isidro, History of Present Illness 55-year-old who was admitted with " abnormal lab"- Bun/cr- 17 /1.8, hypokalemia, hypomagnesemia( 1.5) , hemoglobin 7. and albumin of 2.4, UA was significant for 2+ protein, with hyaline cast and positive urobilinogen, with a pedal edema. Patient was transfused 1 unit of PRBC yesterday and started on diuretic. imaging of the thoracic spine revealed compression fractures of T5, T7, T9 in the setting of lytic lesions highly concerning for neoplastic process. patient has not seen a physician for 20 years and is not aware of any renal problems,, no history of kidney stones or hematuria, urine has been " normal". lying down in bed when examined, back pain has improved, He says h has been taking Ibrufen regularly since may he is passing urine without any difficulty. Denies any medical issues in the past Allergies Allergy/AdvReac Type Severity Reaction Status Date / Time No Known Allergies Allergy Unverified 05/17/10 18:38 Home Medications Medication Instructions Recorded Confirmed Type amoxicillin 875 mg tablet 875 mg PO BID 08/15/25 08/15/25 History Patient History Surgical History History of cholecystectomy Family History Father No problems noted. Social History (Updated 08/15/25 @ 22:38 by Maria E Olivares PA-C) Smoking Status: Never smoker Tobacco Type: Smokeless Tobacco (Dip or Chew) Do You Dip or Chew Tobacco: Yes; Hx Alcohol Use: No Hx Substance Use: No Preferred Language: Belarusian Lepidopterist Required: No Beliefs That Will Affect Care: None Current Living Situation: Spouse and Family Feels Safe at Home: Yes Review of Systems 2 Review of Systems: All systems reviewed & are unremarkable except as noted in HPI & below Physical Exam 2 Physical Exam: Constitutional: Alert,Comfortable Extremities: 1-2+ pitting edema lower extremities Results & Data Vital Signs (Past 12 Hours) Vital Signs Temp Pulse Pulse Resp BP BP BP 08/16/25 11:23 36.4 C L 99 H 20 158/105 H 08/16/25 09:19 94 H 165/113 H 151/103 H 08/16/25 08:00 08/16/25 07:27 167/119 H 08/16/25 07:14 36.8 C 108 H 14 180/119 H 08/16/25 03:27 36.8 C 94 H 14 156/100 H 08/16/25 03:26 36.8 C 94 H 24 156/100 H 08/16/25 02:35 94 H 20 148/106 H Pulse Ox O2 Del Method 08/16/25 11:23 92 Room Air 08/16/25 09:19 08/16/25 08:00 Room Air 08/16/25 07:27 08/16/25 07:14 95 Room Air 08/16/25 03:27 95 08/16/25 03:26 95 08/16/25 02:35 94 Laboratory Results 08/16/25 05:33 08/16/25 05:33
[2025-08-16] MEDS: ACETAMINOPHEN 500 MG TAB PO SCH (14:35)
--- NOTE | 2025-08-16 16:39 | Ultrasound Report ---
Exam: Retroperitoneal ultrasound. History: Acute kidney failure. Comparison:None. Findings: Right kidney measures 11.4 x 5.8 x 4.6 cm. Echotexture is within normal limits. No stone, mass or hydronephrosis. Left kidney measures 11.8 x 6.6 x 4.6 cm. Echotexture is normal. No stone, mass or hydronephrosis. Urinary bladder is mildly distended. No discrete mass. Bilateral ureteral jets are not identified. Prominent wall thickness is noted. This may be secondary to incomplete distention. Small amount of free fluid right lower abdominal quadrant. Etiology uncertain. Impression: 1. Normal kidneys. 2. Prominent wall thickness urinary bladder. No discrete mass. This may be secondary to incomplete distention. 3. Small amount of free fluid right lower quadrant. Etiology uncertain. Electronically signed by Kyle Nobles 08-16-2025 4:38 PM
[2025-08-16 19:19] LABS: Protein Creatinine Ratio Urine 2.4 (0-0.2); Total Protein Urine Random 221.9 mg/dl (0-11.9)
[2025-08-16] MEDS ORDERED: DOXYCYCLINE HYCLATE 100 MG CAP PO SCH (21:00)
[2025-08-17 05:43] LABS: Hematocrit (blood only) 22.4 % (42.0-52.0); Hemoglobin 7.0 g/dL (14.0-18.0); Mean Corpuscular Hemoglobin 30.8 pg (25.0-34.0); Mean Corpuscular Volume 98.7 fL (80.0-100.0); Platelet Count 191 K/uL (130-400); RDW Standard Deviation 68.9 fL (36.4-46.3); Red Blood Count 2.27 M/uL (4.70-6.10); White Blood Count 6.74 K/ul (4.8-10.8)
[2025-08-17 05:58] LABS: Albumin Globulin Ratio 0.3 (0.9-2); Albumin Level 2.5 gm/dl (3.4-5.0); Anion Gap 13.0 (3-11); Blood Urea Nitrogen 25.0 mg/dl (6-23); Calcium 9.0 mg/dl (8.6-10.3); Carbon Dioxide 25.0 mmol/L (21-32); Chloride 99.0 mmol/L (98-107); Creatinine Clr Calc Pharmacy 34.7 ml/min; Globulin 8.0 gm/dl (2.5-4.0); Glucose 116.0 mg/dl (70-99(Fasting)); Potassium 3.6 mmol/L (3.5-5.1); Sodium 137.0 mmol/L (136-145); Total Protein 10.5 gm/dl (6.0-8.3)
[2025-08-17] MEDS ORDERED: SODIUM CHLORIDE 0.9% 100 ML IV PRN (07:13)
--- NOTE | 2025-08-17 07:40 | Oncology Consultation ---
Date of Consultation August 17, 2025 Assessment & Plan (1) Pathological fracture of vertebra: (2) Osteolytic lesion: (3) Acute renal failure: Plan Labs and imaging consistent with IgA related multiple myeloma. This is likely responsible for anemia, renal insufficiency. He may also have cardiac involvement. Still awaiting SPEP with serum immunofixation, free light chains. - Obtain anemia panel including iron studies, B12, folate level to rule out other causes of anemia. -Obtain bone marrow biopsy BEVERLEY - Although IgA MM less likely to be associated with hyperviscosity syndrome will obtain serum viscosity level. If significantly elevated, may benefit from therapeutic apheresis - If back pain persists, Consider orthopedic evaluation to see if he would be a candidate for kyphoplasty. Would also need radiation oncology evaluation for palliative RT if back pain persists. -Given renal involvement, preferred option of treatment to be daratumumab plus CyBorD. Plan to start treatment outpatient as soon as he is discharged from hospital. He will also need outpatient PET/CT. History of Present Illness Reason for Consultation: Possible multiple myeloma Attending Physician: Lexx Isidro, DO History of Present Illness 55-year-old gentleman who presented to the ER at [facility] due to abnormal labs which showed KALYANI as well as elevated proBNP. Labs obtained in the ER revealed severe anemia with hemoglobin of 6.9, hematocrit 21.4, MCV 97.9. WBC and platelet count within normal limits. Total protein was elevated at 10.7 with creatinine of 1.89 and BUN of 17. CT abdomen and pelvis revealed mild right pleural effusion, mild ascitic fluid involving perihepatic space, r ight paracolic gutter and lower abdomen and pelvis region, multiple subcentimeter sized to mildly prominent aortocaval, para-aortic and paracaval lymph nodes as well as multiple variable sized osteolytic lesions involving axial and appendicular skeletonpossibly neoplastic etiology and diffuse subcutaneous edema/anasarca. CT thoracic spine revealed evidence of variable sized osteolytic lesions largest involving T7-T9 vertebra, compression collapse of T5 vertebrae with about 80 to 90% reduction of vertebral body height with retropulsion of posterior cortex causing mild spinal canal narrowingpathologic compression likely, compression collapse of T7 vertebra with about 15 to 20% reduction of vertebral body height. CT head and cervical spine on 08/16/2025 showed multiple lytic lesions noted throughout cervical spine and calvarium most concerning for metastatic disease. CT lumbar spine on 08/16/2025 showed diffuse lytic lesions in the lumbar spine and visualized iliac bones. Quantitative immunoglobulins revealed elevated IgE level of 6649, IgG 472 and IgM of less than 20 Allergies Allergy/AdvReac Type Severity Reaction Status Date / Time No Known Allergies Allergy Unverified 05/17/10 18:38 Home Medications Medication Instructions Recorded Confirmed Type amoxicillin 875 mg tablet 875 mg PO BID 08/15/25 08/15/25 History Patient History Surgical History History of cholecystectomy Family History Father No problems noted. 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
[2025-08-17 08:28] LABS: Iron 56.0 mcg/dl (35-175); Total Iron Binding Cap Calc 178.0 mcg/dl (250-450); Transferrin 127.0 mg/dl (200-360); Transferrin (FE) Percent Satur 31.0 % (20-50)
[2025-08-17 08:47] LABS: Ferritin 575.0 ng/ml (8-388)
[2025-08-17] MEDS ORDERED: ONDANSETRON INJ 2 MG/ML 2 ML VIAL IV PRN (08:54)
[2025-08-17] MEDS: DOXYCYCLINE HYCLATE 100 MG CAP PO SCH (09:23)
[2025-08-17] MEDS: guaiFENesin 600 MG TABCR PO SCH (09:23)
[2025-08-17 09:53] LABS: Folate (Folic Acid),Ser orPlas 4.9 ng/ml (>5.38)
[2025-08-17 09:54] LABS: Vitamin B12 571.0 pg/ml (180-914)
--- NOTE | 2025-08-17 12:43 | Hospitalist Progress Note ---
Date of Service August 17, 2025 Assessment & Plan (1) Multiple myeloma: Plan: Suspected (2) Acute renal failure: (3) Acute anemia: (4) Hypertension, uncontrolled: (5) Hypertensive heart failure: (6) Osteolytic lesion: (7) Compression fx, thoracic spine: Plan: T5, T7, T9 (8) Pathological fracture of vertebra: (9) Hypokalemia: (10) Hypomagnesemia: (11) Acute bronchitis: Plan Patient 55-year-old gentleman with laboratory findings, imaging findings and clinical symptoms highly consistent with multiple myeloma Renal function worse today, possibly due to diuresis, no additional diuretics today Hemoglobin trended down slightly, anticipate will continue to trend down, transfuse an additional unit of packed red blood cells today Blood pressure and heart rate has significantly improved with Coreg, continue current dose Oncology consultation and recommendations pending Continue to monitor electrolytes and renal function With with patient's increased cough and some purulence to his sputum, concern for possible developing bronchitis, start doxycycline, Mucinex, [facility] Nephrology on board and assisting with renal dysfunction Folate replacement Admission and Anticipated Discharge Date Admission Date: August 15, 2025 Subjective Patient reports uneventful night. He states that the oxycodone definitely help with his back pain. Started to have more chest congestion and a bit of a purulent sputum when he coughs. Coughing definitely exacerbates his back pain. Physical Exam Physical Exam: Constitutional: Alert, sitting in chair, fatigued but not toxic HEENT: Mucous membranes moist. Lungs: Decreased breath sounds, few crackles at bases CV: S1-S2, regular Abdomen: Soft, nontender, nondistended Extremities: Lower extremity edema improved Neuro: No focal deficits, generally weak Psych: Cooperative, slightly depressed Results & Data Results & Data Vital Signs (Past 12 Hours) Vital Signs Temp Pulse Pulse Resp BP BP Pulse Ox 08/17/25 11:14 36.7 C 77 18 115/79 94 08/17/25 10:20 36.8 C 82 18 126/88 95 08/17/25 10:17 36.8 C 82 18 126/88 95 08/17/25 09:35 81 22 121/86 97 08/17/25 08:35 36.8 C 80 16 129/89 95 08/17/25 08:05 36.8 C 77 17 134/90 96 08/17/25 07:50 36.8 C 80 19 147/87 H 96 08/17/25 07:45 08/17/25 07:31 36.8 C 77 18 122/86 95 08/17/25 03:31 36.6 C 74 18 115/77 97 O2 Del Method 08/17/25 11:14 Room Air 08/17/25 10:20 08/17/25 10:17 08/17/25 09:35 08/17/25 08:35 08/17/25 08:05 08/17/25 07:50 08/17/25 07:45 Room Air 08/17/25 07:31 08/17/25 03:31 Room Air Diagnostic Findings Reviewed imaging, laboratory and diagnostic studies. Pertinent findings as b elow. WBC 6.7 Hemoglobin 7.0 Platelets of 191 Potassium 3.6 Creatinine 2.83, increased Iron studies reviewed Vitamin B12 571 Folate 4.9 Urine protein to 21.9, high Urine protein to creatinine ratio 2.4, increased Renal ultrasound no acute abnormalities CT scan of the head, cervical spine, lumbar spine all show diffuse lytic lesions throughout
--- NOTE | 2025-08-17 13:51 | Nephrology Progress Note ---
Date of Service August 17, 2025 Assessment & Plan (1) Acute renal failure: Plan: Patient has not seen a physician for many years, difficult to comment if this is chronic or acute. he has got 1-2+ proteinuria with osteolytic lesions and anemia- myeloma is a possibility,he has been on regular NSAIDS Since May , again GN is a possibility myeloma screen has been sent by the primary team Renal Uss shows normal sized kidney wo obstruction, subnephrotic protenuria. Grade 1 disatolic HF on Echo - Renal functions have declined - Previous numbers were likely dilutional and this is his true renal function), he is making good urine,but he still has pedal edema w/ Hypoalbumenemia. - Keep him on torsemide 40 mg daily. - F/W on the renal immunology screen and PCR - HTN- Better -ok with coreg and Diuretic as above -Hematology consult- He will need bone marrow biopsy/ renal biopsy He will need to follow w/ [facility] within 1 week of discharge w/ BMP (2) Osteolytic lesion: (3) Hypertension, uncontrolled: Plan: -Better -Co-reg and Torsemide as above Admission and Anticipated Discharge Date Admission Date: August 15, 2025 Subjective Patient reports uneventful night. Back pain better, Good UOP . Review of Systems 2 Review of Systems: All systems reviewed & are unremarkable except as noted in HPI & below Physical Exam 2 Physical Exam: Constitutional: Alert,Comfortable Extremities: 1-2+ pitting edema lower extremities Results & Data Vital Signs (Past 12 Hours) Vital Signs Temp Pulse Pulse Resp BP BP Pulse Ox 08/17/25 11:14 36.7 C 77 18 115/79 94 08/17/25 10:20 36.8 C 82 18 126/88 95 08/17/25 10:17 36.8 C 82 18 126/88 95 08/17/25 09:35 81 22 121/86 97 08/17/25 08:35 36.8 C 80 16 129/89 95 08/17/25 08:05 36.8 C 77 17 134/90 96 08/17/25 07:50 36.8 C 80 19 147/87 H 96 08/17/25 07:45 08/17/25 07:31 36.8 C 77 18 122/86 95 08/17/25 03:31 36.6 C 74 18 115/77 97 O2 Del Method 08/17/25 11:14 Room Air 08/17/25 10:20 08/17/25 10:17 08/17/25 09:35 08/17/25 08:35 08/17/25 08:05 08/17/25 07:50 08/17/25 07:45 Room Air 08/17/25 07:31 08/17/25 03:31 Room Air Laboratory Results 08/17/25 05:21 08/17/25 05:21
[2025-08-17] MEDS: FUROSEMIDE 40 MG/4 ML VIAL IV SCH (14:33)
[2025-08-18 06:45] LABS: Hematocrit (blood only) 27.2 % (42.0-52.0); Hemoglobin 8.9 g/dL (14.0-18.0); Mean Corpuscular Hemoglobin 31.8 pg (25.0-34.0); Mean Corpuscular Volume 97.1 fL (80.0-100.0); Platelet Count 211 K/uL (130-400); RDW Standard Deviation 65.2 fL (36.4-46.3); Red Blood Count 2.80 M/uL (4.70-6.10); White Blood Count 7.66 K/ul (4.8-10.8)
[2025-08-18 07:03] LABS: Anion Gap 13.0 (3-11); Blood Urea Nitrogen 31.0 mg/dl (6-23); Calcium 9.0 mg/dl (8.6-10.3); Carbon Dioxide 24.0 mmol/L (21-32); Chloride 99.0 mmol/L (98-107); Creatinine Clr Calc Pharmacy 22.2 ml/min; Glucose 100.0 mg/dl (70-99(Fasting)); Magnesium 1.9 mg/dl (1.7-2.4); Potassium 3.7 mmol/L (3.5-5.1); Sodium 136.0 mmol/L (136-145)
[2025-08-18 09:44] LABS: Hematocrit (blood only) 28.1 % (42.0-52.0); Hemoglobin 8.7 g/dL (14.0-18.0); Immature Granulocytes # (auto) 0.03 K/uL (0.01-0.20); Immature Granulocytes % (auto) 0.4 %; Mean Corpuscular Hemoglobin 30.4 pg (25.0-34.0); Mean Corpuscular Volume 98.3 fL (80.0-100.0); Platelet Count 204 K/uL (130-400); RDW Standard Deviation 66.8 fL (36.4-46.3); Red Blood Count 2.86 M/uL (4.70-6.10); White Blood Count 7.48 K/ul (4.8-10.8)
--- NOTE | 2025-08-18 10:21 | Nephrology Progress Note ---
Date of Service August 18, 2025 Assessment & Plan Admission and Anticipated Discharge Date Admission Date: August 15, 2025 Subjective Assessment & Plan (1) Acute renal failure: Plan: Patient has not seen a physician for many years, difficult to comment if this is chronic or acute. he has got 1-2+ proteinuria with osteolytic lesions and anemia- myeloma is a strong possibility,he has been on regular NSAIDS Since May , again GN is a possibility myeloma screen has been sent by the primary team Renal Us shows normal sized kidney wo obstruction, sub nephrotic protenuria. Grade 1 diastolic HF on Echo - Renal functions have declined . Creat went up very sharply from yesterday to today. ? Light chain cast nephropathy vS ATN. creat rise is very fast like we see in ATN. Needs vigorous urine output for LCCN--more the better to reduce nephrotoxicity Will do NS 2000 ml at 100 ml/hr. Also give lasix 80 iv x 1 Strict I and O charting. HTN- Better ok with coreg Hematology consult- ? getting bone marrow biopsy today. More important we establish Dx from hematology as Rx if any for MM will be through hematology He will need to follow w/ [facility] within 1 week of discharge w/ BMP (2) Osteolytic lesion: likely myeloma related. Subjective Patient reports uneventful night. Back pain better, Good UOP wants to go home. Review of Systems Review of Systems: All systems reviewed & are unremarkable except as noted in HPI & below Physical Exam Physical Exam: Constitutional: Alert,Comfortable Extremities: 1-2+ pitting edema lower extremities Chest Clear. CVS--RRR Abd--Obese, soft Results & Data Vital Signs (Past 12 Hours) Vital Signs Temp Pulse Pulse Resp BP Pulse Ox O2 Del Method 08/18/25 08:50 36.6 C 84 78 17 109/72 95 Room Air 08/18/25 07:22 36.5 C 78 18 128/85 97 Room Air 08/18/25 07:15 Room Air
[2025-08-18 10:38] LABS: Bone Marrow Smear SLHOLD; Polychromasia 1+; Rouleaux 1+; Stomatocytes 1+; Target Cells 1+
[2025-08-18] MEDS: COUGH DROP (SUGAR FREE) LOZ 24 LOZ/1 BOX BUCCAL ONE (11:34)
[2025-08-18] MEDS: SODIUM CHLORIDE 0.9% 1,000 ML IV SCH (13:00)
--- NOTE | 2025-08-18 13:02 | Hospitalist Progress Note ---
Date of Service August 18, 2025 Assessment & Plan (1) Multiple myeloma: Plan: Suspected (2) Acute renal failure: (3) Acute anemia: (4) Hypertension, uncontrolled: (5) Hypertensive heart failure: (6) Osteolytic lesion: (7) Compression fx, thoracic spine: Plan: T5, T7, T9 (8) Pathological fracture of vertebra: (9) Hypokalemia: (10) Hypomagnesemia: (11) Acute bronchitis: Plan 55-year-old gentleman with laboratory findings, imaging findings, symptoms consistent with multiple myeloma. Now with rapidly progressing renal failure. Communication with nephrology, concern possible ATN in addition to multiple myeloma renal dysfunction. This could be due to his significant hypertension at the time of presentation. Will give a trial of IV fluid and Lasix flush. Continue to monitor renal function electrolytes Patient status bone marrow biopsy today, follow results with hematology/oncology for planned treatment of multiple myeloma Continue treatment for acute bronchitis, cough significantly improved Electrolytes at this point are stable, will continue to monitor and place as needed Blood pressure significantly improved with the Coreg, continue current dose Patient states overall his back pain is manageable, no radicular symptoms, communication with occupational therapist, feels that a brace may benefit especially when the patient starts to travel in the car. Orthotics consultation placed Phone update to patient's . Admission and Anticipated Discharge Date Admission Date: August 15, 2025 Subjective Patient seen after bone marrow biopsy. Tolerated well. Denies any chest pain or shortness of breath. Continue with significant lower extremity swelling Physical Exam Physical Exam: Constitutional: Alert, no acute distress HEENT: Mucous membranes moist. Lungs: Clear to auscultation, decreased, no wheezes rales or rhonchi CV: S1-S2, regular Abdomen: Soft, nontender, nondistended Extremities: 2-3+ pitting edema lower extremities Neuro: No focal deficits Psych: Cooperative, normal mood, frustrated over his condition Results & Data Results & Data Vital Signs (Past 12 Hours) Vital Signs Temp Pulse Pulse Resp BP Pulse Ox O2 Del Method 08/18/25 11:23 36.4 C L 78 18 110/70 98 Room Air 08/18/25 08:50 36.6 C 84 78 17 109/72 95 Room Air 08/18/25 07:22 36.5 C 78 18 128/85 97 Room Air 08/18/25 07:15 Room Air Diagnostic Findings Reviewed imaging, laboratory and diagnostic studies. Pertinent findings as below. Hemoglobin 8.7, improved posttransfusion Creatinine 4.4, significantly increased Electrolytes stable
[2025-08-18] MEDS: FUROSEMIDE 40 MG/4 ML VIAL IV ONE (13:13)
--- NOTE | 2025-08-18 15:16 | CT Scan Report ---
CT guided bone marrow biopsy INDICATION: Multiple myeloma PROCEDURE: Procedure and risks were explained. Informed consent was obtained. A final timeout was com pleted. The patient was placed prone on the CT exam table. The left gluteal region was prepped and dr aped in sterile fashion. 1% lidocaine was utilized for skin anesthesia. The patient received 1 g Tyle nol IV. Utilizing CT guidance, an 11-gauge bone biopsy needle was advanced into the left iliac bone. Multiple aspirates and 1 bone core was obtained and given to the lab. The needle was removed and Band-Aid palmira lied. The patient tolerated the procedure well. Vital signs will be monitored postprocedure. IMPRESSION: Bone marrow biopsy as above. Performed, dictated, and signed by Eliezer Wynn PA-C; to be co-signed by Dr. Zack Ritchie. Electronically signed by: Zack Ritchie M.D. 08/18/2025 4:08 PM
[2025-08-19 06:08] LABS: Hematocrit (blood only) 25.3 % (42.0-52.0); Hemoglobin 8.0 g/dL (14.0-18.0); Mean Corpuscular Hemoglobin 31.4 pg (25.0-34.0); Mean Corpuscular Volume 99.2 fL (80.0-100.0); Platelet Count 198 K/uL (130-400); RDW Standard Deviation 66.4 fL (36.4-46.3); Red Blood Count 2.55 M/uL (4.70-6.10); White Blood Count 6.71 K/ul (4.8-10.8)
[2025-08-19 06:32] LABS: Anion Gap 14.0 (3-11); Blood Urea Nitrogen 39.0 mg/dl (6-23); Calcium 8.6 mg/dl (8.6-10.3); Carbon Dioxide 23.0 mmol/L (21-32); Chloride 99.0 mmol/L (98-107); Creatinine Clr Calc Pharmacy 17.8 ml/min; Glucose 99.0 mg/dl (70-99(Fasting)); Magnesium 1.9 mg/dl (1.7-2.4); Potassium 3.9 mmol/L (3.5-5.1); Sodium 136.0 mmol/L (136-145)
--- NOTE | 2025-08-19 08:19 | Nephrology Progress Note ---
Date of Service August 19, 2025 Assessment & Plan Admission and Anticipated Discharge Date Admission Date: August 15, 2025 Subjective Assessment & Plan (1) Acute renal failure: Plan: Patient has not seen a physician for many years, difficult to comment if this is chronic or acute. he has got 1-2+ proteinuria with osteolytic lesions and anemia- myeloma is a strong possibility,he has been on regular NSAIDS Since May myeloma screen has been sent by the primary team Renal Us shows normal sized kidney wo obstruction, sub nephrotic protenuria. Grade 1 diastolic HF on Echo Renal functions have declined . Creat went up even higher today to 5.53 . ? Light chain cast nephropathy vS ATN. Needs vigorous urine output for LCCN--more the better to reduce nephrotoxicity Creat still rising even with IVF + lasix combo done yesterday No dialysis need today. given his younger age he can tolerate higher creat before dialysis is needed. Explain to him in great detail why doing dialysis before he actually needs it does not help with his recovery. and we do not do dialysis sooner than the need just so they can be discharged earlier. he is quite frustrated with all the new diagnosis and specially surprise like why he is feeling so good and yet we are talking about potentially life-threatening diseases. eating and drinking fine so need of IVF or lasix today. We have to have resolution regarding rising creat before he can be discharged. Strict I and O charting. HTN- Better ok with coreg Hematology consult- Did get bone marrow biopsy --result pending. More important we establish Dx from hematology as Rx if any for MM will be through hematology He will need to follow w/ [facility] within 1 week of discharge w/ BMP (2) Osteolytic lesion: Most likely myeloma related. Subjective Back pain better, Good UOP. BP is fine. No SOB and on RA. Review of Systems Review of Systems: All systems reviewed & are unremarkable except as noted in HPI & below Physical Exam Physical Exam: Constitutional: Alert,Comfortable Extremities: 1-2+ pitting edema lower extremities Chest Clear. CVS--RRR Abd--Obese, soft Results & Data Vital Signs (Past 12 Hours) Vital Signs Temp Pulse Resp BP Pulse Ox O2 Del Method 08/18/25 23:10 36.5 C 82 18 115/70 96 Room Air 08/18/25 20:35 Room Air
[2025-08-19 09:42] LABS: Albumin 2.0 g/dL (3.8-4.8); Beta-1-Globulin 0.4 g/dL (0.4-0.6); Gamma Globulin 0.1 g/dL (0.8-1.7); Total Protein 9.0 g/dL (6.1-8.1)
--- NOTE | 2025-08-19 11:36 | Hospitalist Progress Note ---
Date of Service August 19, 2025 Assessment & Plan (1) Multiple myeloma: Plan: Suspected (2) Acute renal failure: Plan: Progressing (3) Acute anemia: (4) Hypertension, uncontrolled: (5) Hypertensive heart failure: (6) Osteolytic lesion: (7) Compression fx, thoracic spine: Plan: T5, T7, T9 (8) Pathological fracture of vertebra: (9) Hypokalemia: (10) Hypomagnesemia: (11) Acute bronchitis: Plan: Improved Plan Patient 55-year-old gentleman who had not seen a physician for many years presented to the emergency room with outpatient labs showing acute kidney injury and anemia. Workup in the hospital is highly consistent with diagnosis of multiple myeloma. Patient's renal function continues to deteriorate, communication with nephrology. Not a candidate for hemodialysis today, however concerned may end up on hemodialysis. This was discussed with the patient. Patient will not be able to be discharged until his renal function stabilizes or improves or he ends up on hemodialysis. Follow-up with oncology once pathology results available for initiation of treatment for his presumed multiple myeloma Continue to monitor electrolytes Patient has required PRBCs x 2 units, hemoglobin is slowly trending down, anticipate he may need additional transfusions while his workup continues and until his treatment starts. Patient is tolerating the compression fractures without significant amounts of pain or need for pain medications. Declined brace from orthotics yesterday. Continue to monitor symptoms. No additional interventions at this time. Continue short course of doxycycline for presumed bronchitis Patient has responded well to Coreg, continue for blood pressure control Admission and Anticipated Discharge Date Admission Date: August 15, 2025 Subjective No acute issues overnight, cough significantly improved. Frustrated over his medical conditions. Worked with orthotics yesterday to evaluate if brace would benefit him at all. He declined thoracic brace. States pain is manageable. Physical Exam 2 Physical Exam: Constitutional: Alert, nontoxic, no acute distress HEENT: Mucous membranes moist. Lungs: Clear to auscultation, decreased, no wheezes rales or rhonchi CV: S1-S2, regular Abdomen: Soft, nontender, nondistended Extremities: 1-2+ pitting edema lower extremity, slightly improved over yesterday Neuro: No focal deficits Psych: Cooperative, normal mood Results & Data Results & Data Vital Signs (Past 12 Hours) Vital Signs Temp Pulse Resp BP Pulse Ox O2 Del Method 08/19/25 08:52 36.7 C 80 18 119/81 97 Room Air 08/19/25 07:10 Room Air Diagnostic Findings Reviewed imaging, laboratory and diagnostic studies. Pertinent findings as below. WBC 6.7 Hemoglobin 8.0, slowly trending downward Platelets of 198 Creatinine 5.53, increasing Phosphorus 5.7 Bone marrow pathology pending
[2025-08-20 06:16] LABS: Hematocrit (blood only) 27.8 % (42.0-52.0); Hemoglobin 8.9 g/dL (14.0-18.0); Mean Corpuscular Hemoglobin 31.4 pg (25.0-34.0); Mean Corpuscular Volume 98.2 fL (80.0-100.0); Platelet Count 190 K/uL (130-400); RDW Standard Deviation 64.8 fL (36.4-46.3); Red Blood Count 2.83 M/uL (4.70-6.10); White Blood Count 5.55 K/ul (4.8-10.8)
[2025-08-20 06:43] LABS: Anti Nuclear Antibody Screen NEGATIVE (NEGATIVE); Anti-dsDNA Recombinant <1 IU/mL
[2025-08-20 06:45] LABS: Carbon Dioxide 20.0 mmol/L (21-32); Chloride 99.0 mmol/L (98-107); Potassium 4.1 mmol/L (3.5-5.1); Sodium 133.0 mmol/L (136-145)
[2025-08-20 06:46] LABS: Anion Gap 14.0 (3-11); Calcium 8.8 mg/dl (8.6-10.3); Magnesium 1.9 mg/dl (1.7-2.4)
[2025-08-20 06:54] LABS: Blood Urea Nitrogen 44.0 mg/dl (6-23); Creatinine Clr Calc Pharmacy 15.2 ml/min; Glucose 96.0 mg/dl (70-99(Fasting))
--- NOTE | 2025-08-20 10:22 | Nephrology Progress Note ---
Date of Service August 20, 2025 Assessment & Plan Admission and Anticipated Discharge Date Admission Date: August 15, 2025 Subjective Assessment & Plan (1) Acute renal failure: Plan: Patient has not seen a physician for many years, difficult to comment if this is chronic or acute. he has got 1-2+ proteinuria with osteolytic lesions and anemia- myeloma is a strong possibility,he has been on regular NSAIDS Since May myeloma screen has been sent by the primary team Renal Us shows normal sized kidney wo obstruction, sub nephrotic protenuria. Grade 1 diastolic HF on Echo Renal functions have declined . Creat went up even higher today to 5.53 . ? Light chain cast nephropathy vS ATN. Needs vigorous urine output for LCCN--more the better to reduce nephrotoxicity Creat still rising even with IVF + lasix combo done yesterday No dialysis need today. given his younger age he can tolerate higher creat before dialysis is needed. Explain to him in great detail why doing dialysis before he actually needs it does not help with his recovery. And we do not do dialysis sooner than the need just so they can be discharged earlier. he is quite frustrated with all the new diagnosis and specially surprised like why he is feeling so good and yet we are talking about potentially life- threatening diseases. eating and drinking fine so need of IVF or lasix today. at this rate he will need Dialysis by monday so plan is to do tunnelled HD cath on monday AM--Spoke with Dr Ohara and confirmed. Do dialasis Monday and Monday. corporate general manager need to start Working on getting Outpt Dialysis setup at [facility] ( close to his home) with Dr Hunt keep him NPO after midnight for monday AM Strict I and O charting. HTN- Better ok with coreg Hematology consult- Did get bone marrow biopsy --result pending. More important we establish Dx from hematology as Rx if any for MM will be through hematology He will need to follow w/ [facility] within 1 week of discharge w/ BMP (2) Osteolytic lesion: Most likely myeloma related. total time spent 47 mins--Spoke with Dr Ohara and dr Cannon and extensive discussion with patient about the plan Subjective Back pain better, making urine but not massive amount. BP is fine. No SOB and on RA. Review of Systems Review of Systems: All systems reviewed & are unremarkable except as noted in HPI & below Physical Exam Physical Exam: Constitutional: Alert,Comfortable Extremities: 1-2+ pitting edema lower extremities Chest Clear. CVS--RRR Abd--Obese, soft Results & Data Vital Signs (Past 12 Hours) Vital Signs Temp Pulse Resp BP Pulse Ox O2 Del Method 08/20/25 07:15 Room Air 08/20/25 07:15 36.5 C 78 18 133/91 98 Room Air 08/19/25 23:17 36.6 C 82 16 127/63 93 Room Air
--- NOTE | 2025-08-20 13:23 | Hospitalist Progress Note ---
Date of Service August 20, 2025 Assessment & Plan (1) Multiple myeloma: Plan: Suspected (2) Acute renal failure: Plan: Progressing (3) Acute anemia: (4) Hypertension, uncontrolled: (5) Hypertensive heart failure: (6) Osteolytic lesion: (7) Compression fx, thoracic spine: Plan: T5, T7, T9 (8) Pathological fracture of vertebra: (9) Hypokalemia: (10) Hypomagnesemia: (11) Acute bronchitis: Plan: Improved Plan Per previous provider w/ addendum: Pt is 55 yo gentleman who had not seen a physician for many years presented to the emergency room with outpatient labs showing acute kidney injury and anemia. Workup in the hospital is highly consistent with diagnosis of multiple myeloma. Patient's renal function continues to deteriorate, communication with nephrology. Discussed w/ nephrology - consulted vasc. surgery for HD placement on Monday. Will cont. to monitor renal function. Follow-up with oncology once pathology results available for initiation of treatment for his presumed multiple myeloma Continue to monitor electrolytes Patient has required PRBCs x 2 units, hemoglobin is slowly trending down, anticipate he may need additional transfusions while his workup continues and until his treatment starts. Patient is tolerating the compression fractures without significant amounts of pain or need for pain medications. Declined brace from orthotics. Continue to monitor symptoms. No additional interventions at this time. Continue short course of doxycycline for presumed bronchitis Patient has responded well to Coreg, continue for blood pressure control Admission and Anticipated Discharge Date Admission Date: August 15, 2025 Subjective Pt seen in follow up back pain and vert. fx, anemia, KALYANI - concern for MM Currently sitting up in chair in NAD Pt reports he is feeling well overall, denies any significant pain, also denies any chest pain or shortness of breath Discussed with nephrology - pt will likely need HD by Monday. Will consult vasc. surgery for HD cath placement on Monday. Review of Systems Review of Systems: All systems reviewed & are unremarkable except as noted in Subjective Physical Exam Physical Exam: Constitutional: obese M in NAD HEENT: Mucous membranes moist. Lungs: Clear to auscultation, decreased, no wheezes rales or rhonchi CV: S1-S2, regular Abdomen: Soft, nontender, nondistended Extremities: 1-2+ LE edema Neuro: awake, alert, answers appropriately, speech fluent, moves extremities Psych: Cooperative, normal mood Results & Data Results & Data Vital Signs (Past 12 Hours) Vital Signs Temp Pulse Resp BP Pulse Ox O2 Del Method 08/20/25 07:15 Room Air 08/20/25 07:15 36.5 C 78 18 133/91 98 Room Air Laboratory Results 08/20/25 08/18/25 Range/Units 05:24 06:13 WBC 5.55 (4.8-10.8) K/ul RBC 2.83 L (4.70-6.10) M/uL Hgb 8.9 L (14.0-18.0) g/dL Hct 27.8 L (42.0-52.0) % MCV 98.2 (80.0-100.0) fL MCH 31.4 (25.0-34.0) pg MCHC 32.0 (32.0-36.0) g/dL RDW Std Deviation 64.8 H (36.4-46.3) fL RDW Coeff of Matthew 18.6 H (11.5-14.5) % Plt Count 190 (130-400) K/uL MPV 10.1 (9.4-12.4) fL Sodium 133 L (136-145) mmol/L Potassium 4.1 (3.5-5.1) mmol/L Chloride 99 (98-107) mmol/L Carbon Dioxide 20 L (21-32) mmol/L Anion Gap 14 H (3-11) BUN 44 H (6-23) mg/dl Creatinine 6.46 H* D (0.6-1.4) mg/dl Est Cr Clr Drug Dosing 15.2 ml/min eGFR 9.36 BUN/Creatinine Ratio 6.8 L (10-20) Glucose 96 (70-99(Fasting)) mg/dl Calcium 8.8 (8.6-10.3) mg/dl Phosphorus 6.4 H (2.5-4.9) mg/dl Magnesium 1.9 (1.7-2.4) mg/dl Serum Immunofixation SEE NOTE DES Screen NEGATIVE (NEGATIVE) Double Strand DNA Ab <1 IU/mL Medications Administered Current Inpatient Medications Acetaminophen (Acetaminophen 500 Mg Tab) 1,000 mg PO TID WENDY Stop: 09/15/25 13:59 Last Admin: 08/20/25 12:57 Dose: 1,000 mg Carvedilol (Carvedilol 6.25 Mg Tab) 6.25 mg PO BIDM [facility] Stop: 09/15/25 13:34 Last Admin: 08/20/25 07:25 Dose: 6.25 mg Doxycycline Hyclate (Doxycycline Hyclate 100 Mg Cap) 100 mg PO BID [facility] Stop: 08/22/25 08:59 Last Admin: 08/20/25 08:19 Dose: 100 mg Ferrous Sulfate (Ferrous Sulfate 325 Mg Tab) [facility] [place] Stop: 09/15/25 08:59 Last Admin: 08/20/25 08:20 Dose: 325 mg Folic Acid (Folic Acid 1 Mg Tab) [facility] [place] Stop: 09/15/25 08:59 Last Admin: 08/20/25 08:20 Dose: 1 mg Guaifenesin (Guaifenesin 600 Mg Tabcr) 600 mg PO Q12 [facility] Stop: 09/16/25 08:59 Last Admin: 08/20/25 08:19 Dose: 600 mg Hydrocodone Bit/Homatropine Methylb (Hydrocodone/Homatropine Syrup 5mg/1.5mg 5ml Udp) 5 ml PO Q6H PRN PRN Reason: Cough Stop: 08/31/25 08:53 Miscellaneous (Remove Nicoderm Patch) 1 each N/A DAILY@0859 [facility] Stop: 09/15/25 08:58 Last Admin: 08/20/25 08:18 Dose: 1 each Nicotine (Nicotine 14 Mg/24 Hr Patch) 1 patch TD [facility] Stop: 09/15/25 08:59 Last Admin: 08/20/25 08:20 Dose: 1 patch Ondansetron HCl (Ondansetron Inj 2 Mg/Ml 2 Ml Vial) 4 mg IV Q6H PRN PRN Reason: Nausea And Vomiting Stop: 09/16/25 08:53 Oxycodone HCl (Oxycodone Hcl Ir 5 Mg Tab (Immediate Release)) 5 mg PO Q4H PRN PRN Reason: Moderate Pain (Scale 4, 5, 6) Stop: 08/29/25 23:25 Last Admin: 08/20/25 00:42 Dose: 5 mg Oxycodone HCl (Oxycodone Hcl Ir 5 Mg Tab (Immediate Release)) 10 mg PO Q4H PRN PRN Reason: Severe Pain (Scale 7, 8, 9,10) Stop: 08/30/25 13:05 Last Admin: 08/18/25 11:33 Dose: 10 mg
[2025-08-20 13:57] LABS: Appearance Urine Clear (Clear); Bacteria Urine Automated None Seen (None Seen); Epithelial Cell Urine Auto 0-2 /hpf (0-2); Glucose Urine UA Negative (Negative); RBC Urine Automated 0-2 /hpf (0-2); WBC Urine Automated 21-50 /hpf (0-5)
[2025-08-20 14:51] LABS: Protein Creatinine Ratio Urine 3.5 (0-0.2); Total Protein Urine Random 345.4 mg/dl (0-11.9)
--- NOTE | 2025-08-20 14:59 | Consultation ---
Date of Consultation August 20, 2025 Assessment & Plan (1) Acute renal failure: Pt with acute renal failure, worsening since admission. Per nephrology, pt will likely require HD within next few days, recommending permcath insertion. Discussed with Dr Ohara, planning on insertion on Monday, 08/22. Procedure, risks, benefits, and alternatives discussed with the pt by myself at Dr Oahra's request. Pt expresses understanding and agreement to proceed. History of Present Illness Reason for Consultation: ESRD Attending Physician: Minh Cannon MD History of Present Illness 55 yo m with recent dx of multiple myeloma and KALYANI, seen in consultation today for permcath insertion for HD initiation. Pt states feeling a little tired and having some back pain from his vertebral fx. Denies VELA, fever, chest pain, SOB, abd pain, N/V, rest pain, claudication, other complaints. Allergies Allergy/AdvReac Type Severity Reaction Status Date / Time No Known Allergies Allergy Unverified 05/17/10 18:38 Home Medications Medication Instructions Recorded Confirmed Type amoxicillin 875 mg tablet 875 mg PO BID 08/15/25 08/15/25 History Patient History Surgical History History of cholecystectomy Family History Father No problems noted. Social History Smoking Status: Never smoker Tobacco Type: Smokeless Tobacco (Dip or Chew) Do You Dip or Chew Tobacco: Yes; Hx Alcohol Use: No Hx Substance Use: No Preferred Language: Sami Communication Ability: Effective [employer] Required: No Beliefs That Will Affect Care: Hindu Current Living Situation: Spouse and Family Feels Safe at Home: Yes Assistive Devices: None Review of Systems Review of Systems: All systems reviewed & are unremarkable except as noted in HPI & below Physical Exam Constitutional: WD/WN, vitals as above + obese, healthy appearing, cooperative and comfortable; not in distress Respiratory: normal respiratory effort, lungs clear to auscultation Auscultation: + diminished lung sounds Cardiovascular: Rate/Rhythm: regular rate and regular rhythm Vessels: posterior tibial pulses present, dorsalis pedis pulses present and radial pulses present; + abnormal peripheral pulses Extremities: normal capillary refill and + edema Gastrointestinal (Abdomen): Inspection/Auscultation: abdomen normal to inspection and normal bowel sounds Percussion/Palpation: abdomen soft; abdomen nontender Musculoskeletal: no cyanosis or clubbing, extremities motor strength 5/5 Skin: no rashes, warm and dry Neurologic: moves all extremities and awake; no focal motor deficits and not confused Psychiatric: A+Ox3, euthymic affect Results & Data Vital Signs (Past 12 Hours) Vital Signs Temp Pulse Resp BP Pulse Ox O2 Del Method 08/20/25 07:15 Room Air 08/20/25 07:15 36.5 C 78 18 133/91 98 Room Air
--- NOTE | 2025-08-20 17:52 | Hematology/Oncology Prog Note ---
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
[2025-08-20 23:47] VITALS: TEMP 97.7
[2025-08-21 05:33] LABS: Hematocrit (blood only) 26.4 % (42.0-52.0); Hemoglobin 8.4 g/dL (14.0-18.0); Mean Corpuscular Hemoglobin 31.1 pg (25.0-34.0); Mean Corpuscular Volume 97.8 fL (80.0-100.0); Platelet Count 178 K/uL (130-400); RDW Standard Deviation 66.1 fL (36.4-46.3); Red Blood Count 2.70 M/uL (4.70-6.10); White Blood Count 5.83 K/ul (4.8-10.8)
[2025-08-21 06:18] LABS: Anion Gap 14.0 (3-11); Blood Urea Nitrogen 48.0 mg/dl (6-23); Calcium 9.0 mg/dl (8.6-10.3); Carbon Dioxide 20.0 mmol/L (21-32); Chloride 98.0 mmol/L (98-107); Creatinine Clr Calc Pharmacy 14.7 ml/min; Glucose 91.0 mg/dl (70-99(Fasting)); Magnesium 1.9 mg/dl (1.7-2.4); Potassium 4.2 mmol/L (3.5-5.1); Sodium 132.0 mmol/L (136-145)
[2025-08-21 07:04] VITALS: BP 139/90; PULSE 75; RESP 16; O2SAT 98
--- NOTE | 2025-08-21 09:41 | Nephrology Progress Note ---
Date of Service August 21, 2025 Assessment & Plan Admission and Anticipated Discharge Date Admission Date: August 15, 2025 Subjective Assessment & Plan (1) Acute renal failure: Plan: Patient has not seen a physician for many years, difficult to comment if this is chronic or acute. he has got 1-2+ proteinuria with osteolytic lesions and anemia- myeloma is a strong possibility,he has been on regular NSAIDS Since May myeloma screen has been sent by the primary team Renal Us shows normal sized kidney wo obstruction, sub nephrotic protenuria. Grade 1 diastolic HF on Echo Renal functions have declined . Creat went up even higher today to 5.53 . ? Light chain cast nephropathy vS ATN. Needs vigorous urine output for [facility]--more the better to reduce nephrotoxicity Creat still rising today. Reviewed hematology note about hyperviscosity syndrome and possible need for Apheresis--[place] [facility] [place] No dialysis need today. given his younger age he can tolerate higher creat before dialysis is needed. He is quite frustrated with all the new diagnosis and specially surprised like why he is feeling so good and yet we are talking about potentially life- threatening diseases. eating and drinking fine so need of IVF or lasix today. Strict I and O charting. HTN- Better ok with coreg Hematology consult- Did get bone marrow biopsy --result pending. More important we establish Dx from hematology as Rx if any for MM will be through hematology Reviewed note about 100% plasma cells in BM biospy and also hyperviscosity syndrome and possible need for Apheresis--getting [place] [facility] [place] (2) Osteolytic lesion: Bone marrow biopsy did confirm MM Subjective Back pain better, making urine but not massive amount. BP is fine. No SOB and on RA. Review of Systems Review of Systems: All systems reviewed & are unremarkable except as noted in HPI & below Physical Exam Physical Exam: Constitutional: Alert,Comfortable Extremities: 1-2+ pitting edema lower extremities Chest Clear. CVS--RRR Abd--Obese, soft Results & Data Vital Signs (Past 12 Hours) Vital Signs Temp Pulse Resp BP BP Pulse Ox O2 Del Method 08/21/25 07:03 36.5 C 75 16 139/90 98 Room Air 08/20/25 23:20 36.5 C 73 18 118/78 99 Room Air
--- NOTE | 2025-08-21 13:43 | Communication Note ---
Date of Service: August 21, 2025 Patient for insertion of permcath tomorrow at 0800
--- NOTE | 2025-08-21 13:45 | Discharge Summary ---
Date of Service August 21, 2025 Admission HPI Per Admitting Provider Patient is 55-year-old male with PMH chewing tobacco use presented to ER for abnormal labs. Patient reports he has not seen a provider for over 20 years. Reports thoracic back pain that started after he was lifting heavy tote in May. Patient reports went to a chiropractor and had adjustments without relief. States saw another chiropractor which helped decrease pain. Reports approximately 1 week ago started with productive cough. Denies rhinorrhea, sore throat. Denies fever or chills. Reports thoracic back pain worse since cough. He has been taking ibuprofen intermittently over past couple of months for back pain. 6 days ago noticed bilateral lower leg edema. He reports noticing SOB with exertion for past 1-2 months. noticed seems winded with conversation at times. Sleeps in recliner for past several months secondary to back discomfort. Denies noted orthopnea. Reports 20 pound weight loss over the past 3 months with poor appetite and decreased oral intake. Fatigue over the past month. Family has stated his color seems off. Denies diaphoresis, N/V/D/C, VEAL, dizziness, syncope, vision changes, neck pain, CP, palpitations, hemoptysis, sore throat, choking, abdominal pain, paresthesias, extremity weakness, extremity erythema, rashes, urinary symptoms, night sweats, melena, hematochezia. Denies falls or other trauma. Patient presented to PCP today as new patient and labs were ordered. He was found to have anemia and abnormal renal functions and referred to ER for further evaluation. Reports father was smoker and "smoking and pneumonia". Per outpatient chart review 08/15/25: Cr: 2.1, H/H: 7.3/24.5, PSA:3.3 (range <3.1), A1c: 6.0, TSH: 1.7, proBNP: 11,595 (range <300), Lipid panel: Total cholesterol: 61, LDL: 30, HDL: 21, triglycerides: 49 08/15/25 CXR: Impression: Small right pleural effusion. 08/15/25 Thoracic spine x-ray: Impression: Moderate to severe T5 compression fracture, age indeterminate. Mild multilevel thoracic degenerative change. Admission Exam Per Admitting Provider General: no distress, overweight male Head: normocephalic, atraumatic Eyes: conjunctiva non-injected, anicteric ENT: normal inspection external ears, nose, mucous membranes moist Neck: supple, trachea midline Lungs: +dyspneic with conversation, R: 24, +diminished breath sounds RLL ; +cough with visibly productive yellow sputum CV: regular rhythm, tachycardia, rate 104, possible S3, + pretibial edema Abd: protuberant, normal BS, soft, non-tender Ext: no cyanosis, no calf tenderness Neuro: A&O x 3, no focal deficits noted, normal affect Skin: warm, dry, left lower leg with scattered excoriations and scabs Principal Diagnosis Vertebral fracture, anemia, acute kidney failure secondary to new diagnosis of multiple myeloma High viscosity secondary to new diagnosis of multiple myeloma Discharge Exam Constitutional: obese M in NAD HEENT: Mucous membranes moist. Lungs: Clear to auscultation, decreased, no wheezes rales or rhonchi CV: S1-S2, regular Abdomen: Soft, nontender, nondistended Extremities: 1-2+ LE edema Neuro: awake, alert, answers appropriately, speech fluent, moves extremities Psych: Cooperative, normal mood Discharge Data Allergies Allergy/AdvReac Type Severity Reaction Status Date / Time No Known Allergies Allergy Unverified 05/17/10 18:38 Consultations 08/15/25 20:47 ED Decision to Admit Stat 08/15/25 23:33 Consult Cardiology Routine 08/16/25 08:04 Consult Oncology Routine 08/16/25 10:08 Consult Nephrology Routine 08/20/25 10:17 Consult Vascular Surgery Routine Procedures Performed Operation Date: 08/22/25 08:00 <No data on this case meets the specified criteria> Ordered Studies 08/16/25 01:20 CT abd pelvis wo con Urgent FINDINGS: Mild right pleural effusion with basal subsegmental collapse of right lower lobes are seen. Mild ascitic fluid is noted involving perihepatic space, right paracolic gutter and lower abdomen and pelvis region. Evaluation of the abdominal and pelvic visceral organs is limited without intravenous contrast. The unenhanced liver, spleen, pancreas, and adrenal glands are grossly unremarkable. Status post-cholecystectomy. The kidneys are normal in size and attenuation without obvious calcification. There is no hydronephrosis Mild bilateral perinephric fat stranding. The ureters are normal in caliber. No evidence of focal or diffuse bowel wall thickening or evidence of bowel obstruction is seen. The aorta is normal in caliber. The urinary bladder is normal in contour. Enlarged prostate. Pelvic viscera are grossly unremarkable. Fat containing bilateral inguinal hernia.-more on right side. Mild focal mesenteric haziness is noted involving supra and periumbilical region (at the mesenteric root) superimposed subcentimeter size lymph nodes-suggestive of mesenteric panniculitis. Multiple variable sized osteolytic lesions are noted involving axial and appendicular skeleton- possibility of neoplastic etiology. Diffuse subcutaneous edema/anasarca noted. Multiple subcentimeter sized to mildly prominent aortocaval, para-aortic and paracaval lymph nodes are seen. IMPRESSION: 1. Mild right pleural effusion with basal subsegmental collapse of right lower lobes are seen. 2. Mild ascitic fluid is noted involving perihepatic space, right paracolic gutter and lower abdomen and pelvis region. 3. Mild bilateral perinephric fat stranding 4. Enlarged prostate. 5. Fat containing bilateral inguinal hernia.-more on right side. 6. Mesenteric panniculitis. 7. Multiple subcentimeter sized to mildly prominent aortocaval, para-aortic and paracaval lymph nodes are seen. 8. Multiple variable sized osteolytic lesions are noted involving axial and appendicular skeleton - possibility of neoplastic etiology. 9. Diffuse subcutaneous edema/anasarca noted. CT thoracic spine wo con Urgent FINDINGS: The alignment of the thoracic spine is maintained. Degenerative changes involving thoracic spine in the form of multilevel marginal osteophytes, disc space reduction and facetal arthrosis. Evidence of variable sized osteolytic lesions are noted involving visualized thoracic vertebrae including its posterior elements and multiple ribs.- largest involving T7 and T9 vertebra. Compression collapse of T5 vertebra with about 80%-90% reduction of vertebral body height with retropulsion of posterior cortex causing mild spinal canal narrowing (Anteroposterior dimension measuring 11mm). - pathological compression likely. Compression collapse of T7 vertebra with about 15%-20% reduction of vertebral body height. Thoracic vertebral bodies are maintained in height and alignment. No vertebral destructive changes are seen. C7-T1: No disc bulge. No canal stenosis. No neuroforaminal narrowing. T1-T2: No disc bulge. No canal stenosis. No neuroforaminal narrowing. T2-T3: No disc bulge. No canal stenosis. No neuroforaminal narrowing. T3-T4: No disc bulge. No canal stenosis. No neuroforaminal narrowing. T4-T5: No disc bulge. No canal stenosis. No neuroforaminal narrowing. T5-T6: No disc bulge. No canal stenosis. No neuroforaminal narrowing. T6-T7: No disc bulge. No canal stenosis. No neuroforaminal narrowing. T7-T8: No disc bulge. No canal stenosis. No neuroforaminal narrowing. T8-T9: No disc bulge. No canal stenosis. No neuroforaminal narrowing. T9-T10: No disc bulge. No canal stenosis. No neuroforaminal narrowing. T10-T11: No disc bulge. No canal stenosis. No neuroforaminal narrowing. T11-T12: No disc bulge. No canal stenosis. No neuroforaminal narrowing. Paravertebral soft tissues are unremarkable. Visualized lung parenchyma appears unremarkable. Mild right pleural effusion with basal subsegmental collapse of right lower lobes are seen. IMPRESSION: Evidence of variable sized osteolytic lesions are noted involving visualized thoracic vertebrae including its posterior elements and multiple ribs.- largest involving T7 and T9 vertebra.- possibility of neoplastic etiology likely. Compression collapse of T5 vertebra with about 80%-90% reduction of vertebral body height with retropulsion of posterior cortex causing mild spinal canal narrowing - pathological compression likely. Compression collapse of T7 vertebra with about 15%-20% reduction of vertebral body height. Mild right pleural effusion with basal subsegmental collapse of right lower lobes are seen. 08/16/25 01:24 US venous doppler LE Urgent IMPRESSION: 1. No evidence of deep vein thrombosis at the visualized bilateral lower extremity veins at this time of exam. 2. Bilateral groin lymph nodes with preserved fatty hilum, likely reactive. 3. Mild bilateral calf subcutaneous edema. 08/16/25 12:56 CT cervical spine wo con Routine IMPRESSION: 1. Multiple lytic lesions noted throughout the cervical spine and calvarium most concerning for metastatic disease. No fracture. 2. Motion limits assessment of the brain. No acute abnormality identified. 3. Small right pleural effusion. CT head/brain wo con Routine IMPRESSION: 1. Multiple lytic lesions noted throughout the cervical spine and calvarium most concerning for metastatic disease. No fracture. 2. Motion limits assessment of the brain. No acute abnormality identified. 3. Small right pleural effusion. CT lumbar spine wo con Routine IMPRESSION: Diffuse lytic changes in the lumbar spine and visualized iliac bones most concerning for metastatic disease. No fracture noted. 08/16/25 14:48 US Renal Bladder [US renal/blad retro comp] Routine 1. Normal kidneys. 2. Prominent wall thickness urinary bladder. No discrete mass. This may be secondary to incomplete distention. 3. Small amount of free fluid right lower quadrant. Etiology uncertain. 08/18/25 07:00 IR bone marrow bx & asp Routine PROCEDURE: Procedure and risks were explained. Informed consent was obtained. A final timeout was completed. The patient was placed prone on the CT exam table. The left gluteal region was prepped and draped in sterile fashion. 1% lidocaine was utilized for skin anesthesia. The patient received 1 g Tylenol IV. Utilizing CT guidance, an 11-gauge bone biopsy needle was advanced into the left iliac bone. Multiple aspirates and 1 bone core was obtained and given to the lab. The needle was removed and Band-Aid applied. The patient tolerated the procedure well. Vital signs will be monitored postprocedure. IMPRESSION: Bone marrow biopsy as above. Hospital Course (1) Multiple myeloma: Suspected (2) Acute renal failure: Progressing (3) Acute anemia: (4) Hypertension, uncontrolled: (5) Hypertensive heart failure: (6) Osteolytic lesion: (7) Compression fx, thoracic spine: T5, T7, T9 (8) Pathological fracture of vertebra: (9) Hypokalemia: (10) Hypomagnesemia: (11) Acute bronchitis: Improved Plan Pt is 55 yo gentleman who had not seen a physician for many years presented to the emergency room with back pain / verteb. fx, outpatient labs showing acute kidney injury and anemia. Workup in the hospital is highly consistent with diagnosis of multiple myeloma. Patient's renal function continues to deteriorate, communicated with nephrology. Discussed w/ nephrology - consulted [facility]. surgery for poss. HD placement on Monday. Will cont. to monitor renal function. Update: Discussed w/ heme/onc Dr. 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 Bone marrow results not yet available but prelim - 100% plasma cells. 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 Pt accepted to [facility], plan to transfer. [place] - 2055. [place]/Lambda ratio 194. IgG 472 (L). IgA 6649 (H). IgM <20 (L) Patient has required PRBCs x 2 units, hemoglobin is slowly trending down, anticipate he may need additional transfusions while his workup continues and until his treatment starts. Patient is tolerating the compression fractures without significant amounts of pain or need for pain medications. Declined brace from orthotics. Continue to monitor symptoms. No additional interventions at this time. Continue short course of doxycycline for presumed bronchitis Patient has responded well to Coreg, continue for blood pressure control Total Time Total Time Spent Total Time Spent (In Minutes): 40 Discharge Plan Discharge Items Patient Disposition: Transfer Acute Care Hospital Reason For Visit: CHF Discharge Diagnosis: Vertebral fracture, anemia, acute kidney failure secondary to new diagnosis of multiple myeloma High viscosity secondary to new diagnosis of multiple myeloma Condition on Discharge: Fair Activity: Per Instructions section Non-emergency contact: Specialist, Corporate Logistics Manager and Oncologist Call non-emergency contact if: you have any medication questions and your symptoms worsen Follow-up/Referrals: Elisa Lundberg CRNP [Nurse Practitioner] - (The office will call you with a follow up appointment.) Parviz Pascal MD [Surgeon] - (The office will call you for a follow up appointment.) Swa Wna PA-C [Primary Care Provider] - ( ) Jessy Emerson MD [Physician] - Diet: Heart Healthy Addtl Attending Provider Instructions: Patient presented with back pain and found to have vertebr. fracture/s, anemia, acute kidney injury. Required blood transfusion. Bone marrow biopsy done on Monday (08/18/2025). Pathology results pending however per heme/onc - prelim results w/ 100% plasma cells. Also viscosity high and recommend transfer to tertiary center for possible apheresis and treatment of multiple myeloma. Pending Studies at Discharge: Yes Studies:: Bone marrow biopsy results Stand-Alone Forms: My [facility] [employer] Skilled Items Patient informed of condition?: Yes DNR: No Discharge Level of Care: Other Communicable Disease: No Discharge Prognosis: Other Lines: Peripheral IV Medications and DC Order Prescriptions: New doxycycline hyclate 100 mg Capsule 100 mg PO BID 2 Days Qty: 4 0RF nicotine 7 mg/24 hr Patch 24 Hour 1 patch transdermal QAM Qty: 7 0RF carvedilol 6.25 mg Tablet 6.25 mg PO BIDM Qty: 10 0RF guaifenesin [Mucinex] 600 mg Tablet Extended Release 12hr 600 mg PO Q12 Qty: 10 0RF Discontinued amoxicillin 875 mg tablet 875 mg PO BID Rx Instructions: to start today and take for 10 days Discharge Orders: Discharge Order (Routine); Ordered 08/21/25 Ordered By: Minh Cannon Admission Data Admit Date/Time: 08/15/25 22:47 Attending Provider: Minh Cannon Admit Provider: Mckay Hubbard Primary Care Provider: Saw Wan Other Providers: Mckay Hubbard; Elisa Lundberg; Dragan Stafford; Shaw Sherman; Tono Oh; David Kendall; John Campos; Giovana Small; Sunni Mar; Lyn Riggs; Randa Bedoya; Elisa Vazquez; Enio Lantigua; Giles Kapoor; Salima White; Destiny Hoffman; Gretta Mayen; Korin Torres; Brown Arana; Karey Sherman; Chasidy Tan; Kosta Ferrari; Cecilio Carranza; Jessy Emerson; Jaswant Dao; Lexx Isidro; Mani Ohara
[2025-08-25 00:47] LABS: Cryoglobulin, QL Negative (Negative)
[2025-08-27 19:11] LABS: ANCA Screen Negative (Negative); Myeloperoxidase Ab <1.0 AI (<1.0); Vitamin D2,1,25 <8 pg/mL; Vitamin D3,1,25 <8 pg/mL
== END 2025-08-21 15:05 | disposition short-term general hospital (02) | DRG 840 ==
LOC: ED 19:18 → SUATTDRO 22:47 → 2E 22:47 → 3E 08-17 16:23